=== PATIENT | male | born 1960 | race Caucasian/White ===

== ENCOUNTER → 2017-04-15 | Outpatient (CLI) | payer MEDICARE, OTHER ==
--- NOTE | 2017-04-15 10:38 | MR ---
EXAMINATION TYPE: MR lumbar spine wo con DATE OF EXAM: 04/15/2017 COMPARISON: NONE HISTORY: Lumbago with sciatica, right side TECHNIQUE: T1 and T2 axial and sagittal images of the lumbar spine are submitted. FINDINGS: There is no abnormal signal seen within the visualized spinal cord or paraspinal soft tissu es. At L1-2 there is no disc herniation or canal stenosis. No foraminal encroachment. At L2-3 there is facet arthropathy and degenerative disc disease. Mild broad-based disc bulging great er paracentrally to the left. No foraminal encroachment or canal stenosis. At L3-4 there is degenerative disc disease and broad-based central disc bulging with mild effacement of thecal sac. There is facet arthropathy. No foraminal encroachment. Borderline canal stenosis At L4-5 there is broad-based disc bulging centrally with ligament flavum hypertrophy and facet arthro lula. There is mild effacement of thecal sac. Neural foramina are patent with mild narrowing bilater ally. Borderline canal stenosis. At L5-S1 there is severe degenerative disc disease. There is a broad-based central and right paracent ral disc protrusion. There may be some encroachment upon the right nerve root at this level. Moderate bilateral foraminal encroachment. IMPRESSION: 1. Multilevel degenerative disc disease with multilevel disc bulging and most marked findings at L5-S 1 with severe degenerative disc disease and broad-based disc central protrusion resulting in canal st enosis and bilateral foraminal encroachment. There may be mild impression of the right nerve root at this level. 2. Borderline canal stenosis L3-L4 and L4-5 due to disc bulging and hypertrophic changes. 3. There are is ectasia of the abdominal aorta with maximal dimension of 2.8 cm.
== END | disposition home or self-care (01) ==
LOC: RADMRIMAIN 09:47
PROVIDERS: ATTEND Family Medicine
DX: M48.061 Spinal stenosis, lumbar region without neurogenic claudication (principal); M51.17 Intervertebral disc disorders with radiculopathy, lumbosacral region; M53.86 Other specified dorsopathies, lumbar region
CPT/HCPCS: 72148

== ENCOUNTER 2017-08-05 12:04 | Emergency (ER) | payer MEDICARE, OTHER ==
[2017-08-05] MEDS ORDERED: DIPH,PERTUS(ACELL)TETVAC-LF 0.5 ML VIAL IM ONE (12:43)
--- NOTE | 2017-08-05 12:45 | ED ---
General Adult HPI - General Stated complaint: Knee Laceration Time Seen by Provider: 08/05/17 12:36 Source: RN notes reviewed, old records reviewed - History of Present Illness Initial comments: 57-year-old male presents to the emergency department for a chief complaint of right knee laceration. Patient states that about an hour ago he was using a saw to cut wood without a guard it when he accidentally cut his right knee. Patient denies any other injuries. Patient states he can move his right lower extremity without any difficulty. Patient denies any previous surgery on that knee. Patient is not up-to-date on his tetanus shot. Patient has no other complaints at this time including headache, shortness of breath, chest pain, abdominal pain, nausea or vomiting. - Related Data Home Medications Medication Instructions Recorded Confirmed Aspirin 81 mg PO DAILY 11/11/14 12/17/15 Atorvastatin [Lipitor] 40 mg PO DAILY 11/11/14 12/17/15 Nitroglycerin Sl Tabs [Nitrostat] 0.4 mg SL Q5M PRN 11/11/14 12/17/15 Clopidogrel [Plavix] 75 mg PO DAILY 12/17/15 12/17/15 Loratadine [Claritin] 10 mg PO DAILY 12/17/15 12/17/15 Previous Rx's Medication Instructions Recorded Naproxen [Naprosyn] 500 mg PO Q12HR #60 tab 12/17/15 traMADol HCl [Ultram] 50 mg PO Q4H PRN #20 tab 12/17/15 Ibuprofen [Motrin] 600 mg PO Q8HR PRN #20 tab 08/05/17 Allergies Allergy/AdvReac Type Severity Reaction Status Date / Time No Known Allergies Allergy Verified 08/05/17 12:48 Review of Systems ROS Statement: Those systems with pertinent positive or pertinent negative responses have been documented in the HPI. ROS Other: All systems not noted in ROS Statement are negative. Past Medical History Past Medical History: Coronary Artery Disease (CAD) History of Any Multi-Drug Resistant Organisms: None Reported Past Surgical History: Heart Catheterization With Stent Past Psychological History: No Psychological Hx Reported Smoking Status: Current every day smoker Past Alcohol Use History: None Reported Past Drug Use History: None Reported General Exam General appearance: alert, in no apparent distress Respiratory exam: Present: normal lung sounds bilaterally. Absent: respiratory distress, wheezes, rales, rhonchi, stridor Cardiovascular Exam: Present: regular rate, normal rhythm, normal heart sounds. Absent: systolic murmur, diastolic murmur, rubs, gallop, clicks Extremities exam: Present: full ROM (Full range of motion of the right knee), normal capillary refill (Refill less than 2 seconds in the right lower extremity. Pedal pulse 2+.), other (There is a 4 cm vertical laceration to the ventral superior knee joint). Absent: tenderness, joint swelling, calf tenderness Course Vital Signs 08/05/17 12:44 Temperature 98.7 F Pulse Rate 87 Respiratory 18 Rate Blood Pressure 141/87 O2 Sat by Pulse 94 L Oximetry Procedures - Procedures Initial comment: Body area: right knee Laceration length: 4 cm Foreign bodies: no foreign bodies Tendon involvement: none Nerve involvement: none Vascular damage: no Anesthesia: local infiltration Local anesthetic: 8.5 mL 1% lidocaine Preparation: Patient was prepped and draped in the usual sterile fashion. Irrigation solution: saline Irrigation method:saline jet lavage Skin closure: 4-0 Ethilon using sterile technique Number of sutures: 10 Technique: interupted Dressing: antibiotic ointment/ gauze Patient tolerance: Patient tolerated the procedure well with no immediate complications. Medical Decision Making - Medical Decision Making 57-year-old male presents to the emergency department for chief complaint of right knee laceration 1 hour. Patient was using a saw when he accidentally cut his knee. Patient is not up-to-date on tetanus so that was given in the emergency department. On exam there is a 4 cm laceration to the anterior superior knee. It is a vertical laceration. X-ray was obtained of the knee to ensure no bone involvement which showed no fractures. Patient's wound was cleaned and irrigated with saline and iodine. 10 sutures were then used to close the laceration. Patients pain was much better after sutures applied. Patients pulse ox was 98% on discharge. Patient was given Motrin for pain relief. He was told to ice and elevate the extremity as well as rest it. He is to return to the emergency department if symptoms worsen or he notices signs of infection. He is to return in 10 days regardless to have sutures removed. Follow up with primary care provider. Disposition Clinical Impression: Laceration Disposition: HOME SELF-CARE Condition: Good Instructions: Care For Your Stitches (ED), Laceration (ED) Additional Instructions: Please return to the emergency department if you notice any signs of infection or worsening symptoms. Follow up with primary care provider in one to 2 days. Return in 10 days to have sutures removed. Is patient prescribed a controlled substance at d/c from ED?: No Referrals: Maria Victoria Bustillos MD [Primary Care Provider] - 1-2 days Time of Disposition: 13:57
[2017-08-05 12:48] VITALS: BP 141/87; RESP 18; TEMP 98.7
--- NOTE | 2017-08-05 13:05 | XR ---
EXAMINATION TYPE: XR knee 4V RT DATE OF EXAM: 08/05/2017 CLINICAL HISTORY: Laceration injury with pain TECHNIQUE: Three views of the right knee are obtained. A fourth sunrise view was acquired. COMPARISON: None. FINDINGS: There is no acute fracture/dislocation evident in right knee. The tri-compartment joint s paces appear within normal limits. Patellar articulation is within normal limits on sunrise view. Francisco J e posterior vascular calcification is present. IMPRESSION: There is no acute fracture or dislocation in the right knee.
[2017-08-05 14:29] VITALS: PULSE 79
== END 2017-08-05 14:29 | disposition home or self-care (01) ==
LOC: EC 12:04
DX: S81.011A Laceration without foreign body, right knee, initial encounter (principal); I25.10 Atherosclerotic heart disease of native coronary artery without angina pectoris; F17.200 Nicotine dependence, unspecified, uncomplicated; Z23 Encounter for immunization; Z79.82 Long term (current) use of aspirin; Z79.01 Long term (current) use of anticoagulants; Z79.899 Other long term (current) drug therapy; Z95.5 Presence of coronary angioplasty implant and graft; W45.8XXA Other foreign body or object entering through skin, initial encounter; Y92.89 Other specified places as the place of occurrence of the external cause
CPT/HCPCS: 12002; 90471; 90715; 99283

== ENCOUNTER 2018-07-14 19:07 | Inpatient (IN) | payer MEDICARE, OTHER ==
[2018-07-14] MEDS ORDERED: THIAMINE 100 MG/ML 2 ML VIAL IM STA (19:43)
[2018-07-14] MEDS ORDERED: LORazepam 2 MG/ML INJ IV PRN ×2 (19:43)
[2018-07-14] MEDS ORDERED: ASPIRIN 81 MG PO STA (19:44)
[2018-07-14] MEDS ORDERED: SODIUM CHLORIDE 0.9% 1,000 ML IV STA (19:44)
[2018-07-14 20:31] LABS: Basophils # (A) 0.1 k/uL (0-0.2); Basophils % (A) 1 %; Eosinophils # (A) 0.2 k/uL (0-0.7); Eosinophils % (A) 3 %; HCT 46.7 % (39.0-53.0); HGB 16.2 gm/dL (13.0-17.5); Lymphocytes # (A) 1.8 k/uL (1.0-4.8); Lymphocytes % (A) 21 %; MCHC 34.6 g/dL (31.0-37.0); Macrocytosis Slight; Mean Platelet Volume 9.4; Monocytes # (A) 0.4 k/uL (0-1.0); Monocytes % (A) 4 %; Neutrophils # (A) 6.1 k/uL (1.3-7.7); Neutrophils % (A) 71 %; Platelet Count 198 k/uL (150-450); RBC 4.62 m/uL (4.30-5.90); RDW 15.3 % (11.5-15.5); WBC 8.7 k/uL (3.8-10.6)
[2018-07-14] MEDS: LORazepam 2 MG/ML INJ IV PRN (20:32)
[2018-07-14 20:41] LABS: ALT 126 U/L (21-72); AST 237 U/L (17-59); Albumin 3.9 g/dL (3.5-5.0); Alkaline Phosphatase 195 U/L (38-126); Anion Gap 11 mmol/L; Blood Urea Nitrogen 7 mg/dL (9-20); Calcium 9.1 mg/dL (8.4-10.2); Carbon Dioxide 26 mmol/L (22-30); Chloride 105 mmol/L (98-107); Glucose 83 mg/dL (74-99); Magnesium 1.7 mg/dL (1.6-2.3); Phosphorus 3.7 mg/dL (2.5-4.5); Potassium 3.9 mmol/L (3.5-5.1); Sodium 142 mmol/L (137-145); Total Bilirubin 0.9 mg/dL (0.2-1.3); Total Protein 6.4 g/dL (6.3-8.2)
[2018-07-14 20:43] LABS: INR 0.9 (<1.2); Partial Thromboplastin Time 22.9 sec (22.0-30.0); Prothrombin Time 9.8 sec (9.0-12.0)
--- NOTE | 2018-07-14 20:52 | XR ---
EXAMINATION: XR chest 2V DATE AND TIME: 07/14/2018 8:38 PM CLINICAL INDICATION: PHH; Chest Pain TECHNIQUE: Departmental protocol COMPARISON: 11/11/2014 FINDINGS: The lungs are clear. The pleural spaces are negative. The cardiac silhouette is not enlarged. The remainder of the mediastinal silhouette is unremarkable. The skeletal structures and soft tissues are negative for acute findings. Pectus excavatum noted. IMPRESSION: NO ACUTE PROCESS.
--- NOTE | 2018-07-14 21:00 | ED ---
General Adult HPI - General Chief complaint: Nausea/Vomiting/Diarrhea Stated complaint: Detox Time Seen by Provider: 07/14/18 19:25 Source: patient, RN notes reviewed, old records reviewed Mode of arrival: ambulatory Limitations: no limitations - History of Present Illness Initial comments: 58-year-old male patient past medical history of coronary artery disease, status post approximate 5 stents, daily alcohol use presents to ED for multiple complaints. Patient primary complaint is of withdrawal symptoms. Patient states that he would like to decrease his drinking. Patient has secondary complaint of waxing and waning chest pain for approximately 6 weeks. Patient reports that this is located in his left breast region. Patient states that it is tough to quantify how long this pain lasted for palliative and provocative factors due to his daily alcohol abuse. Patient has very complaint of wishing to test for carbon monoxide. Patient reports that he he does house with a propane heater. Patient denies any current chest pain or shortness of breath or not. Patient denies any current complaints. Systemic: Pt denies fatigue, myalgia, fever/chills, rash. Pt denies weakness, night sweats, weight loss. Neuro: Pt denies headache, visual disturbances, syncope or pre-syncope. HEENT: Pt denies ocular discharge or irritation, otalgia, rhinorrhea, pharyngitis or notable lymphadenopathy. Cardiopulmonary: Pt denies chest pain, SOB, heart palpitations, dyspnea on exertion. Abdominal/GI: Pt denies abdominal pain, n/v/d. : Pt denies dysuria, burning w/ urination, frequency/urgency. Denies new onset urinary or bowel incontinence. MSK: Pt denies myalgia, loss of strength or function in extremities. Neuro: Pt denies new onset weakness, paresthesias. - Related Data Home Medications Medication Instructions Recorded Confirmed Aspirin 81 mg PO DAILY 11/11/14 07/14/18 Atorvastatin [Lipitor] 40 mg PO DAILY 11/11/14 07/14/18 Nitroglycerin Sl Tabs [Nitrostat] 0.4 mg SL Q5M PRN 11/11/14 07/14/18 Clopidogrel [Plavix] 75 mg PO DAILY 12/17/15 07/14/18 Loratadine [Claritin] 10 mg PO DAILY 12/17/15 07/14/18 Allergies Allergy/AdvReac Type Severity Reaction Status Date / Time No Known Allergies Allergy Verified 07/14/18 19:48 Review of Systems ROS Statement: Those systems with pertinent positive or pertinent negative responses have been documented in the HPI. ROS Other: All systems not noted in ROS Statement are negative. Past Medical History Past Medical History: Coronary Artery Disease (CAD), Myocardial Infarction ([place]) History of Any Multi-Drug Resistant Organisms: None Reported Past Surgical History: Heart Catheterization With Stent Past Psychological History: No Psychological Hx Reported Smoking Status: Current every day smoker Past Alcohol Use History: Daily Past Drug Use History: None Reported General Exam - General Exam Comments Initial Comments: Constitutional: NAD, AOX3, Pt has pleasant affect. HEENT: NC/AT, trachea midline, neck supple, no lymphadenopathy. Posterior pharynx non erythematous, without exudates. External ears appear normal, without discharge. Mucous membranes moist. Eyes PERRLA, EOM intact. There is no scleral icterus. No pallor noted. Cardiopulmonary: RRR, no murmurs, rubs or gallops, no JVD noted. Lungs CTAB in anterior and posterior alanis. No peripheral edema. Abdominal exam: Abdomen soft and non-distended. Abdomen non-tender to palpation in all 4 quadrants. Bowel sounds active in LLQ. No hepatosplenomegaly. No ecchymosis Neuro: CN II-XII grossly intact. No nuchal rigidity. MSK: No posterior calf tenderness bilaterally, homans sign negative bilaterally. Posterior tibialis and radial pulse +2 bilaterally. Sensation intact in upper and lower extremities. Full active ROM in upper and lower extremities, 5/5 stregnth. Limitations: no limitations Course Vital Signs 07/14/18 07/14/18 19:15 22:24 Temperature 97.8 F Pulse Rate 89 82 Respiratory 20 16 Rate Blood Pressure 137/86 113/71 O2 Sat by Pulse 98 97 Oximetry Medical Decision Making - Medical Decision Making 58-year-old male patient past medical history of coronary artery disease, status post approximate 5 stents, daily alcohol use presents to ED for multiple complaints. Patient primary complaint is of withdrawal symptoms. Patient states that he would like to decrease his drinking. Patient has secondary complaint of waxing and waning chest pain for approximately 6 weeks. Patient reports that this is located in his left breast region. Patient states that it is tough to quantify how long this pain lasted for palliative and provocative factors due to his daily alcohol abuse. Patient has very complaint of wishing to test for carbon monoxide. Patient reports that he he does house with a propane heater. Patient denies any current chest pain or shortness of breath or not. Patient denies any current complaints. Patient vital signs stable, afebrile. Physical exam didn't display acute pathology. Laboratory investigat ions revealed no impressive CBC, CMP revealed mild liver enzyme elevation. Evaluation studies non-impressive. Carbon monoxide quadrants 7.9. Likely due the patient's heavy smoking. Troponin negative. EKG not concerning for acute ischemia. Chest x-ray revealed no acute process. Patient additionally placed on nonrebreather, non-breather discontinued. Patient to be admitted for evaluation due to complaint of chest pain. Patient started on CIWA protocol. Case discussed with Dr. Norris. - Lab Data Result diagrams: 07/14/18 20:15 07/14/18 20:15 Lab Results 07/14/18 07/14/18 07/14/18 Range/Units 20:15 20:15 20:15 WBC 8.7 (3.8-10.6) k/uL RBC 4.62 (4.30-5.90) m/uL Hgb 16.2 (13.0-17.5) gm/dL Hct 46.7 (39.0-53.0) % MCV 101.0 H (80.0-100.0) fL MCH 35.0 (25.0-35.0) pg MCHC 34.6 (31.0-37.0) g/dL RDW 15.3 (11.5-15.5) % Plt Count 198 (150-450) k/uL Neutrophils % 71 % Lymphocytes % 21 % Monocytes % 4 % Eosinophils % 3 % Basophils % 1 % Neutrophils # 6.1 (1.3-7.7) k/uL Lymphocytes # 1.8 (1.0-4.8) k/uL Monocytes # 0.4 (0-1.0) k/uL Eosinophils # 0.2 (0-0.7) k/uL Basophils # 0.1 (0-0.2) k/uL Macrocytosis Slight PT 9.8 (9.0-12.0) sec INR 0.9 (<1.2) APTT 22.9 (22.0-30.0) sec Carbon Monoxide, Quant (<10.0) % Sodium 142 (137-145) mmol/L Potassium 3.9 (3.5-5.1) mmol/L Chloride 105 (98-107) mmol/L Carbon Dioxide 26 (22-30) mmol/L Anion Gap 11 mmol/L BUN 7 L (9-20) mg/dL Creatinine 0.72 (0.66-1.25) mg/dL Est GFR (CKD-EPI)AfAm >90 (>60 ml/min/1.73 sqM) Est GFR (CKD-EPI)NonAf >90 (>60 ml/min/1.73 sqM) Glucose 83 (74-99) mg/dL Calcium 9.1 (8.4-10.2) mg/dL Phosphorus 3.7 (2.5-4.5) mg/dL Magnesium 1.7 (1.6-2.3) mg/dL Total Bilirubin 0.9 (0.2-1.3) mg/dL AST 237 H (17-59) U/L ALT 126 H (21-72) U/L Alkaline Phosphatase 195 H (38-126) U/L Troponin I (0.000-0.034) ng/mL Total Protein 6.4 (6.3-8.2) g/dL Albumin 3.9 (3.5-5.0) g/dL 07/14/18 07/14/18 Range/Units 20:15 20:15 WBC (3.8-10.6) k/uL RBC (4.30-5.90) m/uL Hgb (13.0-17.5) gm/dL Hct (39.0-53.0) % MCV (80.0-100.0) fL MCH (25.0-35.0) pg MCHC (31.0-37.0) g/dL RDW (11.5-15.5) % Plt Count (150-450) k/uL Neutrophils % % Lymphocytes % % Monocytes % % Eosinophils % % Basophils % % Neutrophils # (1.3-7.7) k/uL Lymphocytes # (1.0-4.8) k/uL Monocytes # (0-1.0) k/uL Eosinophils # (0-0.7) k/uL Basophils # (0-0.2) k/uL Macrocytosis PT (9.0-12.0) sec INR (<1.2) APTT (22.0-30.0) sec Carbon Monoxide, Quant 7.9 (<10.0) % Sodium (137-145) mmol/L Potassium (3.5-5.1) mmol/L Chloride (98-107) mmol/L Carbon Dioxide (22-30) mmol/L Anion Gap mmol/L BUN (9-20) mg/dL Creatinine (0.66-1.25) mg/dL Est GFR (CKD-EPI)AfAm (>60 ml/min/1.73 sqM) Est GFR (CKD-EPI)NonAf (>60 ml/min/1.73 sqM) Glucose (74-99) mg/dL Calcium (8.4-10.2) mg/dL Phosphorus (2.5-4.5) mg/dL Magnesium (1.6-2.3) mg/dL Total Bilirubin (0.2-1.3) mg/dL AST (17-59) U/L ALT (21-72) U/L Alkaline Phosphatase (38-126) U/L Troponin I <0.012 (0.000-0.034) ng/mL Total Protein (6.3-8.2) g/dL Albumin (3.5-5.0) g/dL - EKG Data -: EKG Interpreted by Me (and dr norris) EKG Comments: Ventricular rate 73, patient for 148, QRS 100, QT/QTc 432/475. Normal sinus rhy thm. No concern for acute ischemia. Disposition Clinical Impression: Chest pain Disposition: ADMITTED IP TO THIS HOSP Condition: Fair Is patient prescribed a controlled substance at d/c from ED?: No Referrals: Maria Victoria Bustillos MD [Primary Care Provider] - 1-2 days
[2018-07-14] MEDS ORDERED: NITROGLYCERIN SL TABS 0.4 MG TAB SUBLINGUAL PRN (22:28)
[2018-07-14 23:42] LABS: Appearance,Urine Clear (Clear); Bilirubin,Urine Negative (Negative); Blood,Urine Negative (Negative); Color,Urine Yellow; Glucose,Urine (UA) Negative (Negative); Ketones,Urine Negative (Negative); Leukocyte Esterase,Urine Negative (Negative); Nitrite,Urine Negative (Negative); PH, Urine 5.5 (5.0-8.0); Protein,Urine Trace (Negative); Specific Gravity,Urine 1.018 (1.001-1.035)
[2018-07-15 00:10] VITALS: BMI 22.4
[2018-07-15 00:28] LABS: Amphetamine Screen,Urine Not Detected (NotDetected); Barbiturate Screen,Urine Not Detected (NotDetected); Benzodiazepines Screen,Urine Not Detected (NotDetected); Cocaine Screen,Urine Not Detected (NotDetected); Methadone Screen, Urine Not Detected (NotDetected); Opiate Screen,Urine Not Detected (NotDetected); Oxycodone Screen, Urine Not Detected (NotDetected); Phencyclidine Screen,Urine Not Detected (NotDetected); Tricyclic Antidepressant,Urine Not Detected (NotDetected); Urn Cannabinoid Scrn Detected (NotDetected)
[2018-07-15 06:29] LABS: Cholesterol 114 mg/dL (<200); HDL Cholesterol 76 mg/dL (40-60); LDL Cholesterol,Calculated 22 mg/dL (0-99); Triglycerides 82 mg/dL (<150)
[2018-07-15 08:02] VITALS: RESP 18
[2018-07-15] MEDS ORDERED: PANTOPRAZOLE 40 MG TABLET PO SCH (08:15)
[2018-07-15] MEDS ORDERED: PROPRANOLOL LA 80 MG CAP.SA.24H PO SCH (09:00)
[2018-07-15] MEDS ORDERED: ASPIRIN 325 MG TAB PO SCH (09:00)
[2018-07-15] MEDS ORDERED: ASPIRIN 81 MG PO SCH (09:00)
--- NOTE | 2018-07-15 09:23 | P.CRDCN ---
History of Present Illness Consult date: 07/15/18 Requesting physician: Dallin Eagle Consult reason: chest pain History of present illness: HPI: Patient is a 58-year-old male with past medical history of CAD status post stenting in EtOH abuse, who presents to the hospital with acute onset of nausea/vomiting and chest discomfort. He currently follows with Dr Gonzalez in the office. He states his chest discomfort has been going on for several weeks, which is sharp and epigastric. He does report retching with vomiting. Cardiac enzymes were negative 3. EKGs shows sinus rhythm with no acute ST or T-wave changes. Labs: AST 237, PLT 126, ALP 195, sodium 142, potassium 3.9, creatinine 0.7, LDL 22, HDL 76, triglycerides 82 Toxicology screening positive for marijuana, arterial blood gas negative for carbon monoxide exposure Vital Signs: BP 168/69 , HR=71, Temp: 98.8 PAST MEDICAL HISTORY: [CAD status post stenting 4, EtOH abuse, current smoker of tobacco and marijuana] REVIEW OF SYSTEMS: positive for chills and diaphoresis, no Fever. No cough or expectoration. Patient denies headache, dizziness, blurred vision, double vision. Patient reports abdominal discomfort, worsening with palpation. Positive for nausea and vomiting. Positive for chest discomfort, which is non- exertional. No hematochezia. No hematemesis. Denies any black stools or blood in his stools. Denies dysuria or hematuria. No muscle weakness or numbness. PHYSICAL EXAMINATION: This is a 58 -year old male in mild distress at the time of my examination. HEENT: Head is atraumatic, normocephalic. Pupils are equal, round. Sclerae anicteric. Conjunctivae are clear. Mucous membranes of the mouth are moist. Neck is supple. There is no jugular venous distention. No carotid bruit is heard. CHEST EXAMINATION: Lungs are clear to auscultation. No chest wall tenderness is noted on palpation. chest wall pain with inspiration. HEART EXAMINATION: Heart regular rate and rhythm. S1, S2 heard. No murmurs, gallops or rub. ABDOMEN: Soft, tender in upper quadrants. Bowel sounds are heard. No organomegaly noted. EXTREMITIES: 2+ peripheral pulses with no evidence of peripheral edema and no calf tenderness noted. NEUROLOGIC EXAMINATION: Patient is awake, alert and oriented x3. Past Medical History Past Medical History: Coronary Artery Disease (CAD), Myocardial Infarction ([place]) Additional Past Medical History / Comment(s): ETOH, Hx of 4 [place] Last Myocardial Infarction Date:: 2011 History of Any Multi-Drug Resistant Organisms: None Reported Past Surgical History: Heart Catheterization With Stent Additional Past Surgical History / Comment(s): Hx of 4 Stents Past Anesthesia/Blood Transfusion Reactions: No Reported Reaction Date of Last Stent Placement:: 2011 Past Psychological History: No Psychological Hx Reported Smoking Status: Current every day smoker Past Alcohol Use History: Daily Past Drug Use History: None Reported Medications and Allergies Home Medications Medication Instructions Recorded Confirmed Type Aspirin 81 mg PO DAILY 11/11/14 07/14/18 History Atorvastatin [Lipitor] 40 mg PO DAILY 11/11/14 07/14/18 History Nitroglycerin Sl Tabs [Nitrostat] 0.4 mg SL Q5M PRN 11/11/14 07/14/18 History Clopidogrel [Plavix] 75 mg PO DAILY 12/17/15 07/14/18 History Loratadine [Claritin] 10 mg PO DAILY 12/17/15 07/14/18 History Allergies Allergy/AdvReac Type Severity Reaction Status Date / Time No Known Allergies Allergy Verified 07/14/18 19:48 Physical Exam Vitals: Vital Signs Temp Pulse Pulse Resp BP BP Pulse Ox 07/15/18 08:00 98.8 F 71 18 168/69 96 07/15/18 04:00 79 16 07/15/18 03:53 99.0 F 79 16 151/85 93 L 07/15/18 00:00 98.2 F 69 16 164/88 97 07/14/18 23:08 98.0 F 88 16 142/81 96 07/14/18 22:24 82 16 113/71 97 07/14/18 19:15 97.8 F 89 20 137/86 98 Intake and Output 07/14/18 07/15/18 07/15/18 22:59 06:59 14:59 Intake Total 1000 Balance 1000 Intake: Amount of Fluid Infused ( 1000 ml) Other: Voiding Method Toilet Weight 61.235 kg Results 07/14/18 20:15 07/14/18 20:15 Cardiac Enzymes 07/14/18 07/14/18 07/14/18 Range/Units 20:15 20:15 22:41 AST 237 H (17-59) U/L Troponin I <0.012 0.014 (0.000-0.034) ng/mL 07/15/18 Range/Units 05:22 AST (17-59) U/L Troponin I 0.015 (0.000-0.034) ng/mL Coagulation 07/14/18 Range/Units 20:15 PT 9.8 (9.0-12.0) sec APTT 22.9 (22.0-30.0) sec Lipids 07/15/18 Range/Units 05:22 Triglycerides 82 (<150) mg/dL Cholesterol 114 (<200) mg/dL HDL Cholesterol 76 H (40-60) mg/dL CBC 07/14/18 Range/Units 20:15 WBC 8.7 (3.8-10.6) k/uL RBC 4.62 (4.30-5.90) m/uL Hgb 16.2 (13.0-17.5) gm/dL Hct 46.7 (39.0-53.0) % Plt Count 198 (150-450) k/uL Comprehensive Metabolic Panel 07/14/18 Range/Units 20:15 Sodium 142 (137-145) mmol/L Potassium 3.9 (3.5-5.1) mmol/L Chloride 105 (98-107) mmol/L Carbon Dioxide 26 (22-30) mmol/L BUN 7 L (9-20) mg/dL Creatinine 0.72 (0.66-1.25) mg/dL Glucose 83 (74-99) mg/dL Calcium 9.1 (8.4-10.2) mg/dL AST 237 H (17-59) U/L ALT 126 H (21-72) U/L Alkaline Phosphatase 195 H (38-126) U/L Total Protein 6.4 (6.3-8.2) g/dL Albumin 3.9 (3.5-5.0) g/dL Current Medications Generic Name Dose Route Start Last Admin Trade Name Freq PRN Reason Stop Dose Admin Aspirin 81 mg 07/15/18 09:00 07/15/18 08:18 Aspirin PO 81 mg DAILY JIMBO Administration Lorazepam 1 mg 07/14/18 19:43 07/14/18 20:32 Ativan IV 1 mg Q2HR PRN Administration CIWA 8 or 9 Lorazepam 1 mg 07/14/18 19:43 Ativan IV Q1HR PRN CIWA 10 to 15 Lorazepam 2 mg 07/14/18 19:43 07/15/18 08:14 Ativan IV 07/16/18 19:43 2 mg Q10M PRN Administration CIWA 16 or higher Nitroglycerin 0.4 mg 07/14/18 22:28 Nitrostat SUBLINGUAL Q5M PRN Chest Pain Pantoprazole Sodium 40 mg 07/15/18 08:15 07/15/18 08:18 Protonix PO 40 mg [id number] JIMBO Administration Propranolol HCl 80 mg 07/15/18 09:00 Inderal La PO DAILY JIMBO Thiamine HCl 100 mg 07/15/18 12:00 Vitamin B-1 PO BID@1200,1700 JIMBO Intake and Output 07/14/18 07/15/18 07/15/18 22:59 06:59 14:59 Intake Total 1000 Balance 1000 Intake: Amount of Fluid Infused ( 1000 ml) Other: Voiding Method Toilet Weight 61.235 kg 07/14/18 20:15 07/14/18 20:15 EKG Interpretations (text) Sinus rhythm with no acute ST or T wave changes Assessment and Plan Assessment: ASSESSMENT AND PLAN: 1) CAD s/p stenting x5 2) ETOH withdrawl 3) Hypertension 4) Dyslipidemia, LDL=22 5) Pancreatitis, elevated liver enzymes 6) Chest pain, likely musculoskeletal. Plan: We will hold his statin at this time, until his liver function normalizes. Start Inderal 80mg for hypertension. Reduce aspirin to 81mg. [place] GI prophylaxis.
[2018-07-15] MEDS ORDERED: ONDANSETRON 4 MG/2 ML VIAL IVP PRN (10:41)
[2018-07-15] MEDS: THIAMINE 100 MG TAB PO SCH ×2 (12:02→17:16)
[2018-07-15 12:04] VITALS: PULSE 73
[2018-07-15] MEDS: LORazepam 2 MG/ML INJ IV PRN ×2 (12:23→16:53)
[2018-07-15 16:22] VITALS: BP 162/87; TEMP 97.8
--- NOTE | 2018-07-15 23:26 | P.HPIM ---
History of Present Illness H&P Date: 07/15/18 Chief Complaint: Chest pain Patient is a 58-year-old male with a known history of coronary artery disease stent 4, history of MT, alcohol abuse came to ER with the complaints of intermittent left retrosternal chest pain on and off for the past 6 weeks. Chest pain is mainly retrosternal and epigastric region. Discussed with shortness of breath and nausea. No vomiting. No diaphoresis. Patient is all call intoxicated on admission. Patient says that his cousin few weeks ago due to sudden heart attack. Patient otherwise denied any recent illnesses. No cough is from production. No headache or dizziness or lightheadedness. Patient does drink alcohol on daily basis. Cardiac enzymes were negative 3. EKGs shows sinus rhythm with no acute ST or T-wave changes. Labs: AST 237, PLT 126, ALP 195, sodium 142, potassium 3.9, creatinine 0.7, LDL 22, HDL 76, triglycerides 82 Toxicology screening positive for marijuana, arterial blood gas negative for carbon monoxide exposure Review of Systems Constitutional: Patient denies any fever or chills . No generalized weakness or weight loss. Abdomen: Patient denied nausea vomiting and diarrhea and abdominal pain. Cardiovascular: Patient denies any chest pain or short of breath no palpitations. Respiratory: patient denied any cough is from production. No shortness of breath Neurologic: Patient denied any numbness or tingling headache. Musculoskeletal: Patient denies any complaints of joint swelling or deformity. Skin: Negative Psychiatric: Negative Endocrine: No heat or cold intolerance. No recent weight gain. Genitourinary: No dysuria or hematuria. All other 14 point ROS negative except the above Past Medical History Past Medical History: Coronary Artery Disease (CAD), Myocardial Infarction (MT) Additional Past Medical History / Comment(s): ETOH, Hx of 4 MT Last Myocardial Infarction Date:: 2011 History of Any Multi-Drug Resistant Organisms: None Reported Past Surgical History: Heart Catheterization With Stent Additional Past Surgical History / Comment(s): Hx of 4 Stents Past Anesthesia/Blood Transfusion Reactions: No Reported Reaction Date of Last Stent Placement:: 2011 Past Psychological History: No Psychological Hx Reported Smoking Status: Current every day smoker Past Alcohol Use History: Daily Past Drug Use History: None Reported Medications and Allergies Home Medications Medication Instructions Recorded Confirmed Type Aspirin 81 mg PO DAILY 11/11/14 07/14/18 History Atorvastatin [Lipitor] 40 mg PO DAILY 11/11/14 07/14/18 History Nitroglycerin Sl Tabs [Nitrostat] 0.4 mg SL Q5M PRN 11/11/14 07/14/18 History Clopidogrel [Plavix] 75 mg PO DAILY 12/17/15 07/14/18 History Loratadine [Claritin] 10 mg PO DAILY 12/17/15 07/14/18 History Allergies Allergy/AdvReac Type Severity Reaction Status Date / Time No Known Allergies Allergy Verified 07/14/18 19:48 Physical Exam Vitals: Vital Signs Temp Pulse Pulse Resp BP BP Pulse Ox 07/15/18 08:00 98.8 F 71 18 168/69 96 07/15/18 04:00 79 16 07/15/18 03:53 99.0 F 79 16 151/85 93 L 07/15/18 00:00 98.2 F 69 16 164/88 97 07/14/18 23:08 98.0 F 88 16 142/81 96 07/14/18 22:24 82 16 113/71 97 07/14/18 19:15 97.8 F 89 20 137/86 98 Intake and Output 07/14/18 07/15/18 07/15/18 22:59 06:59 14:59 Intake Total 1000 Balance 1000 Intake: Amount of Fluid Infused ( 1000 ml) Other: Voiding Method Toilet Weight 61.235 kg PHYSICAL EXAMINATION: Patient is lying in the bed comfortably, no acute distress, awake alert and oriented.. HEENT: Normocephalic. Neck is supple. Pupils reactive. Nostrils clear. Oral cavity is moist. Ears reveal no drainage. Neck reveals no JVD, carotid bruits, or thyromegaly. CHEST EXAMINATION: Trachea is central. Symmetrical expansion. Lung alanis clear to auscultation and percussion. CARDIAC: Normal S1, S2 with no gallops. No murmurs ABDOMEN: Soft. Bowel sounds normal. No organomegaly. No abdominal bruits. Extremities: reveal no edema. No clubbing or cyanosis Neurologically awake, alert, oriented x3 with well-coordinated movements. No focal deficits noted Skin: No rash or skin lesions. Psychiatric: Coperative. Nonsuicidal Musculoskeletal: No joint swelling or deformity. Normal range of motion. Results CBC & Chem 7: 07/14/18 20:15 07/14/18 20:15 Labs: Abnormal Lab Results - Last 24 Hours (Table) 07/14/18 07/14/18 07/14/18 Range/Units 20:15 20:15 22:45 MCV 101.0 H (80.0-100.0) fL BUN 7 L (9-20) mg/dL AST 237 H (17-59) U/L ALT 126 H (21-72) U/L Alkaline Phosphatase 195 H (38-126) U/L HDL Cholesterol (40-60) mg/dL Urine Protein Trace H (Negative) U Marijuana (THC) Screen Detected H (NotDetected) 07/15/18 Range/Units 05:22 MCV (80.0-100.0) fL BUN (9-20) mg/dL AST (17-59) U/L ALT (21-72) U/L Alkaline Phosphatase (38-126) U/L HDL Cholesterol 76 H (40-60) mg/dL Urine Protein (Negative) U Marijuana (THC) Screen (NotDetected) Thrombosis Risk Factor Assmnt - DVT/VTE Prophylaxis DVT/VTE Prophylaxis: Pharmacologic Prophylaxis ordered - Choose All That Apply Any of the Below Risk Factors Present?: Yes Each Factor Represents 1 point: Age 41-60 years Other Risk Factors: No Other congenital or acquired thrombophilia - If yes, enter type in comment: No Thrombosis Risk Factor Assessment Total Risk Factor Score: 1 Thrombosis Risk Factor Assessment Level: Low Risk Assessment and Plan Assessment: Atypical chest pain. Likely musculoskeletal versus GI related. Acute alcohol intoxication Elevated liver status possible alcohol hepatitis Alcohol withdrawal symptoms Coronary artery disease with history of Stent placement 4 Hypertension. Uncontrolled History of MT Marijuana use Nicotine addiction DVT prophylaxis with heparin subcu Plan: Patient be continued on telemetry monitoring. Continue with PPI and symptomatic management for nausea. Continue with aspirin. Hold statins due to elevated liver enzymes. Cardiology is on board. Started on Inderal for blood pressure control. Further recommendations based on the clinical course. Time with Patient: Greater than 30
[2018-07-15] MEDS ORDERED: SODIUM CHLORIDE 0.9% 1,000 ML IV SCH (23:30)
[2018-07-15] MEDS ORDERED: PROPRANOLOL 40 MG TAB PO SCH (23:30)
[2018-07-16] MEDS ORDERED: HEPARIN SODIUM,PORCINE 5,000 UNIT/ML 1 ML VIAL SQ SCH
[2018-07-16] MEDS ORDERED: PANTOPRAZOLE 40 MG TABLET PO SCH (07:30)
[2018-07-16] MEDS ORDERED: ASPIRIN 81 MG PO SCH (09:00)
[2018-07-16] MEDS ORDERED: CLOPIDOGREL 75 MG TAB PO SCH (09:00)
[2018-07-16] MEDS ORDERED: LORATADINE 10 MG TAB PO SCH (09:00)
[2018-07-16] MEDS ORDERED: MULTIVITAMINS, THERA 1 EACH TAB PO SCH (12:00)
[2018-07-16] MEDS ORDERED: THIAMINE 100 MG TAB PO SCH (12:00)
== END 2018-07-15 21:07 | disposition left against medical advice (07) | DRG 313 ==
LOC: EC 19:07 → 1SOBS 21:54 → OBSVTOIN 07-15 14:57 → 3NMEDONC 07-15 16:00
PROVIDERS: ADMIT Hospitalist; ATTEND Hospitalist
DX: R07.89 Other chest pain (principal); K85.90 Acute pancreatitis without necrosis or infection, unspecified; F10.239 Alcohol dependence with withdrawal, unspecified; E78.5 Hyperlipidemia, unspecified; F10.229 Alcohol dependence with intoxication, unspecified; F17.200 Nicotine dependence, unspecified, uncomplicated; I10 Essential (primary) hypertension; I25.10 Atherosclerotic heart disease of native coronary artery without angina pectoris; I25.2 Old myocardial infarction; Z79.02 Long term (current) use of antithrombotics/antiplatelets; Z79.82 Long term (current) use of aspirin; Z79.899 Other long term (current) drug therapy; Z95.5 Presence of coronary angioplasty implant and graft
CPT/HCPCS: 36415; 71046; 80053; 80061; 80306; 80320; 81003; 82375; 83735; 84100; 84484; 85025; 85610; 85730; 93005; 96361; 96372; 96374; 99285

== ENCOUNTER 2018-07-17 07:19 | Emergency (ER) | payer MEDICARE, OTHER ==
[2018-07-17] MEDS ORDERED: SODIUM CHLORIDE 0.9% 1,000 ML IV STA (07:47)
[2018-07-17 08:13] LABS: Basophils % (A) 0 %; Eosinophils # (A) 0.4 k/uL (0-0.7); Eosinophils % (A) 4 %; HCT 44.4 % (39.0-53.0); HGB 15.3 gm/dL (13.0-17.5); Lymphocytes # (A) 1.7 k/uL (1.0-4.8); Lymphocytes % (A) 19 %; MCH 35.3 pg (25.0-35.0); MCHC 34.5 g/dL (31.0-37.0); MCV 102.3 fL (80.0-100.0); Macrocytosis Slight; Mean Platelet Volume 8.1; Monocytes # (A) 0.5 k/uL (0-1.0); Monocytes % (A) 6 %; Neutrophils # (A) 5.8 k/uL (1.3-7.7); Neutrophils % (A) 68 %; Platelet Count 152 k/uL (150-450); RBC 4.34 m/uL (4.30-5.90); RDW 13.3 % (11.5-15.5); WBC 8.6 k/uL (3.8-10.6)
[2018-07-17 08:19] LABS: Potassium 3.1 mmol/L (3.5-5.1)
[2018-07-17 08:21] LABS: ALT 84 U/L (21-72); AST 92 U/L (17-59); Albumin 3.4 g/dL (3.5-5.0); Alkaline Phosphatase 151 U/L (38-126); Amylase 30 U/L (30-110); Anion Gap 12 mmol/L; Blood Urea Nitrogen 3 mg/dL (9-20); Calcium 8.9 mg/dL (8.4-10.2); Carbon Dioxide 25 mmol/L (22-30); Chloride 98 mmol/L (98-107); Glucose 129 mg/dL (74-99); Lipase 122 U/L (23-300); Magnesium 1.5 mg/dL (1.6-2.3); Sodium 135 mmol/L (137-145); Total Bilirubin 0.7 mg/dL (0.2-1.3); Total Protein 5.9 g/dL (6.3-8.2)
[2018-07-17] MEDS ORDERED: ONDANSETRON 4 MG/2 ML VIAL IVP STA (08:45)
[2018-07-17] MEDS ORDERED: MAGNESIUM SULFATE-D5W PMX 1 GM in DEXTROSE/WATER 1 100ML.BAG IVPB ONE (08:46)
--- NOTE | 2018-07-17 08:46 | ED ---
General Adult HPI - General Chief complaint: Abdominal Pain Stated complaint: abd pain Time Seen by Provider: 07/17/18 07:46 Source: patient, RN notes reviewed Mode of arrival: ambulatory - History of Present Illness Initial comments: 58-year-old male with a past medical history of alcohol is on, MT presents to the emergency department for upper abdominal pain. Patient states pain is in abdomen mostly on the right side. He states it radiates around to his back. Patient states he has been nauseous but not vomiting. Patient states this has been ongoing for 6 weeks but worsened in the past 2 days. Patient was recently admitted to the hospital for chest pain evaluation which was found to be negative. Patient does have a history of alcoholism, drank 3 bourbons today. He also ate a doughnut which he states he did keep down. Patient is concerned it may be his pancreas or his liver. Patient has no other complaints at this time including shortness of breath, chest pain, vomiting, headache, or visual changes. - Related Data Home Medications Medication Instructions Recorded Confirmed Aspirin 81 mg PO DAILY 11/11/14 07/17/18 Atorvastatin [Lipitor] 40 mg PO DAILY 11/11/14 07/17/18 Nitroglycerin Sl Tabs [Nitrostat] 0.4 mg SL Q5M PRN 11/11/14 07/17/18 Clopidogrel [Plavix] 75 mg PO DAILY 12/17/15 07/17/18 Loratadine [Claritin] 10 mg PO DAILY 12/17/15 07/17/18 Previous Rx's Medication Instructions Recorded Ondansetron [Zofran ODT] 4 mg PO Q8HR PRN #15 tab 07/17/18 Allergies Allergy/AdvReac Type Severity Reaction Status Date / Time No Known Allergies Allergy Verified 07/17/18 08:37 Review of Systems ROS Statement: Those systems with pertinent positive or pertinent negative responses have been documented in the HPI. ROS Other: All systems not noted in ROS Statement are negative. Past Medical History Past Medical History: Coronary Artery Disease (CAD), Myocardial Infarction (MT) Additional Past Medical History / Comment(s): ETOH, Hx of 4 MT Last Myocardial Infarction Date:: 2011 History of Any Multi-Drug Resistant Organisms: None Reported Past Surgical History: Heart Catheterization With Stent Additional Past Surgical History / Comment(s): Hx of 4 Stents in heart and 1 stent in iliac Past Anesthesia/Blood Transfusion Reactions: No Reported Reaction Date of Last Stent Placement:: 2011 Past Psychological History: No Psychological Hx Reported Smoking Status: Current every day smoker Past Alcohol Use History: Daily Past Drug Use History: Marijuana General Exam General appearance: alert, in no apparent distress Head exam: Present: atraumatic, normocephalic, normal inspection Eye exam: Present: normal appearance, PERRL, EOMI. Absent: scleral icterus, conjunctival injection, periorbital swelling ENT exam: Present: normal exam, mucous membranes moist Neck exam: Present: normal inspection, full ROM. Absent: tenderness, meningismus, lymphadenopathy Respiratory exam: Present: normal lung sounds bilaterally. Absent: respiratory distress, wheezes, rales, rhonchi, stridor Cardiovascular Exam: Present: regular rate, normal rhythm, normal heart sounds. Absent: systolic murmur, diastolic murmur, rubs, gallop, clicks GI/Abdominal exam: Present: soft, tenderness (epigastric and RUQ tenderness), normal bowel sounds. Absent: distended, guarding, rebound, rigid Back exam: Absent: CVA tenderness (R), CVA tenderness (L) Neurological exam: Present: alert, oriented X3, CN II-XII intact Psychiatric exam: Present: normal affect Course Vital Signs 07/17/18 07/17/18 07/17/18 07:21 09:30 10:00 Temperature 97.8 F Pulse Rate 98 84 Respiratory 18 16 Rate Blood Pressure 136/90 154/93 146/94 O2 Sat by Pulse 100 97 94 L Oximetry 07/17/18 07/17/18 10:30 11:00 Temperature Pulse Rate 81 77 Respiratory 17 18 Rate Blood Pressure 138/85 135/84 O2 Sat by Pulse 95 98 Oximetry EKG Findings - EKG Comments: EKG Findings:: Normal sinus rhythm, ventricular rate 80, ND 148, QT 452 Medical Decision Making - Medical Decision Making 58-year-old male with a past medical history of alcoholism, MT presents for upper abdominal pain worse on the right side and radiating to his back. This has been ongoing for about 6 weeks. Also limits for nausea. On exam patient does have right upper quadrant tenderness as well as some epigastric tenderness. Patient did see cardiology 2 days ago, ruled out cardiac cause. CBC unremarkable. CMP does show a magnesium of 1.5 which was replaced. Patient also has a potassium of 3.1 which it was also replaced with 40 mEq. Patient will follow up to have these rechecked. He will also follow up with GI due to hepatomegaly and nonspecific bile duct dilation of 0.8 cm. discussed this case with Dr. Leggett. - Lab Data Result diagrams: 07/17/18 08:00 07/17/18 08:00 Lab Results 07/17/18 07/17/18 07/17/18 Range/Units 08:00 08:00 08:54 WBC 8.6 (3.8-10.6) k/uL RBC 4.34 (4.30-5.90) m/uL Hgb 15.3 (13.0-17.5) gm/dL Hct 44.4 (39.0-53.0) % MCV 102.3 H (80.0-100.0) fL MCH 35.3 H (25.0-35.0) pg MCHC 34.5 (31.0-37.0) g/dL RDW 13.3 (11.5-15.5) % Plt Count 152 (150-450) k/uL Neutrophils % 68 % Lymphocytes % 19 % Monocytes % 6 % Eosinophils % 4 % Basophils % 0 % Neutrophils # 5.8 (1.3-7.7) k/uL Lymphocytes # 1.7 (1.0-4.8) k/uL Monocytes # 0.5 (0-1.0) k/uL Eosinophils # 0.4 (0-0.7) k/uL Basophils # 0.0 (0-0.2) k/uL Macrocytosis Slight Sodium 135 L (137-145) mmol/L Potassium 3.1 L (3.5-5.1) mmol/L Chloride 98 (98-107) mmol/L Carbon Dioxide 25 (22-30) mmol/L Anion Gap 12 mmol/L BUN 3 L (9-20) mg/dL Creatinine 0.53 L (0.66-1.25) mg/dL Est GFR (CKD-EPI)AfAm >90 (>60 ml/min/1.73 sqM) Est GFR (CKD-EPI)NonAf >90 (>60 ml/min/1.73 sqM) Glucose 129 H (74-99) mg/dL Calcium 8.9 (8.4-10.2) mg/dL Magnesium 1.5 L (1.6-2.3) mg/dL Total Bilirubin 0.7 (0.2-1.3) mg/dL AST 92 H (17-59) U/L ALT 84 H (21-72) U/L Alkaline Phosphatase 151 H (38-126) U/L Total Protein 5.9 L (6.3-8.2) g/dL Albumin 3.4 L (3.5-5.0) g/dL Amylase 30 (30-110) U/L Lipase 122 (23-300) U/L Urine Color Light Yellow Urine Appearance Clear (Clear) Urine pH 6.5 (5.0-8.0) Ur Specific [place] 1.002 (1.001-1.035) Urine Protein Negative (Negative) Urine Glucose (UA) Negative (Negative) Urine Ketones Negative (Negative) Urine Blood Negative (Negative) Urine Nitrite Negative (Negative) Urine Bilirubin Negative (Negative) Urine Urobilinogen <2.0 (<2.0) mg/dL Ur Leukocyte Esterase Negative (Negative) Disposition Clinical Impression: Upper abdominal pain Disposition: HOME SELF-CARE Condition: Good Instructions (If sedation given, give patient instructions): Abdominal Pain (ED) Additional Instructions: Please take Zofran for nausea. Follow up with GI in 1-2 days. Return to the emergency department if you have any worsening symptoms. Prescriptions: Ondansetron [Zofran ODT] 4 mg PO Q8HR PRN #15 tab PRN Reason: Nausea Is patient prescribed a controlled substance at d/c from ED?: No Referrals: Maria Victoria Bustillos MD [Primary Care Provider] - 1-2 days Gricelda Howard MD [STAFF PHYSICIAN] - 1-2 days Time of Disposition: 11:36
[2018-07-17] MEDS ORDERED: KETOROLAC 30 MG/ML 1 ML VIAL IVP STA (09:05)
[2018-07-17] MEDS ORDERED: POTASSIUM CHLORIDE 40 MEQ in WATER FOR INJECTION 1 100ML.BAG IVPB STA (09:15)
[2018-07-17 09:18] LABS: Appearance,Urine Clear (Clear); Bilirubin,Urine Negative (Negative); Blood,Urine Negative (Negative); Color,Urine Light Yellow; Glucose,Urine (UA) Negative (Negative); Ketones,Urine Negative (Negative); Leukocyte Esterase,Urine Negative (Negative); Nitrite,Urine Negative (Negative); PH, Urine 6.5 (5.0-8.0); Protein,Urine Negative (Negative); Specific Gravity,Urine 1.002 (1.001-1.035); Urobilinogen,Urine <2.0 mg/dL (<2.0)
[2018-07-17] MEDS ORDERED: POTASSIUM CHLORIDE 20 MEQ in WATER FOR INJECTION 1 100ML.BAG IVPB SCH (09:30)
--- NOTE | 2018-07-17 09:53 | US ---
EXAMINATION TYPE: US abdomen limited DATE OF EXAM: 07/17/2018 COMPARISON: CLINICAL HISTORY: Pain. Epigastric pain, patient is not NPO, no previous surgeries EXAM MEASUREMENTS: Liver Length: 16.6 cm Gallbladder Wall: 0.2 cm CBD: 0.8 cm CHD: 0.7 cm Right Kidney: 10.0 x 4.7 x 5.2 cm Pancreas: Obscured by bowel gas Liver: Increased attenuation, decreased visualization of vessels suggestive of fatty infiltrate, ander ears coarse Gallbladder: length appears slightly enlarged- 10.4 cm Evidence for sonographic Groves's sign: neg CBD: appears slightly dilated for patient age CHD: appears slightly dilated for patient age Right Kidney: wnl IMPRESSION: 1. Hepatomegaly with underlying fatty hepatic infiltration. 2. Nonspecific, bile duct dilatation.
[2018-07-17] MEDS ORDERED: POTASSIUM CHLORIDE ER 20 MEQ TAB.ER PO STA ×2 (10:19→11:42)
[2018-07-17 11:17] VITALS: RESP 18
[2018-07-17 12:01] VITALS: BP 125/88; PULSE 93; TEMP 97.5
== END 2018-07-17 11:59 | disposition home or self-care (01) ==
LOC: EC 07:19
DX: R10.10 Upper abdominal pain, unspecified (principal); R11.0 Nausea; R10.811 Right upper quadrant abdominal tenderness; R10.816 Epigastric abdominal tenderness; R16.0 Hepatomegaly, not elsewhere classified; K83.8 Other specified diseases of biliary tract; I25.10 Atherosclerotic heart disease of native coronary artery without angina pectoris; I25.2 Old myocardial infarction; F17.200 Nicotine dependence, unspecified, uncomplicated; Z79.82 Long term (current) use of aspirin; Z79.02 Long term (current) use of antithrombotics/antiplatelets; Z79.899 Other long term (current) drug therapy; Z95.5 Presence of coronary angioplasty implant and graft
CPT/HCPCS: 99284; 36415; 93005; 80053; 82150; 83690; 83735; 85025; 81003; 76705; 96365; 96367; 96366; 96375 ×2; 96361; J3480; J2405; J1885; J3475

== ENCOUNTER 2019-09-14 13:28 | Inpatient (IN) | payer MEDICARE, OTHER ==
--- NOTE | 2019-09-14 14:11 | XR ---
EXAMINATION TYPE: XR chest 2V DATE OF EXAM: 09/14/2019 COMPARISON: Chest x-ray July 14, 2018 HISTORY: Chest pain for 3 weeks and shortness of breath. TECHNIQUE: Frontal and lateral views of the chest are obtained. FINDINGS: There is chronic emphysematous change without suspicious new focal air space opacity, pleu ral effusion, or pneumothorax seen. The cardiac silhouette size remains within normal limits. Wadsworth ry stents in the proximal LAD and left circumflex distribution are now identified. The osseous struct ures are intact. IMPRESSION: Chronic changes without acute pulmonary process.
[2019-09-14 14:30] LABS: Basophils % (A) 0 %; Eosinophils # (A) 0.1 k/uL (0-0.7); Eosinophils % (A) 1 %; HCT 30.7 % (39.0-53.0); HGB 9.2 gm/dL (13.0-17.5); Hypochromasia Marked; Lymphocytes # (A) 1.5 k/uL (1.0-4.8); Lymphocytes % (A) 15 %; MCH 30.3 pg (25.0-35.0); Macrocytosis Slight; Mean Platelet Volume 9.1; Monocytes # (A) 0.5 k/uL (0-1.0); Monocytes % (A) 5 %; Neutrophils # (A) 7.1 k/uL (1.3-7.7); Neutrophils % (A) 75 %; Platelet Count 230 k/uL (150-450); RBC 3.04 m/uL (4.30-5.90); RDW 14.8 % (11.5-15.5); WBC 9.5 k/uL (3.8-10.6)
[2019-09-14 14:41] LABS: Partial Thromboplastin Time 22.9 sec (22.0-30.0); Prothrombin Time 10.5 sec (9.0-12.0)
[2019-09-14 14:46] LABS: ALT 51 U/L (4-49); AST 99 U/L (17-59); African American GFR (CKD) >90 (>60 ml/min/1.73 sqM); Albumin 2.9 g/dL (3.5-5.0); Alkaline Phosphatase 326 U/L (38-126); Anion Gap 13 mmol/L; Blood Urea Nitrogen 3 mg/dL (9-20); Calcium 7.8 mg/dL (8.4-10.2); Carbon Dioxide 29 mmol/L (22-30); Chloride 94 mmol/L (98-107); Glucose 110 mg/dL (74-99); Magnesium 1.5 mg/dL (1.6-2.3); Non-African American GFR(CKD) >90 (>60 ml/min/1.73 sqM); Sodium 136 mmol/L (137-145); Total Bilirubin 0.7 mg/dL (0.2-1.3)
--- NOTE | 2019-09-14 14:47 | ED ---
Chest Pain HPI - General Chief Complaint: Chest Pain Stated Complaint: SOB, CHEST PAIN Time Seen by Provider: 09/14/19 13:35 Source: patient, RN notes reviewed, old records reviewed Mode of arrival: ambulatory Limitations: no limitations - History of Present Illness Initial Comments: This is a 59-year-old male DF for evaluation patient doesn't multiple complaints chest pain and works from ED and obtain first and foremost. Patient persistent chest pain is persistent here in the ER. Patient does not feel well. Mild nausea no vomiting no current shortness of breath he also complains of bilateral lower extremity edema and redness swelling of both feet. Patient's eye significant history of same. 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 Complaint: chest pain -: days(s) Onset: during rest, during exertion Pain Location: substernal, left chest Pain Radiation: none Severity: moderate Severity scale (1-10): 4 Quality: tightness Consistency: intermittent Improves With: nothing Worsens With: nothing Other Symptoms: palpitations Treatments Prior to Arrival: none - Related Data Home Medications Medication Instructions Recorded Confirmed Aspirin 81 mg PO DAILY 11/11/14 09/14/19 Atorvastatin [Lipitor] 40 mg PO DAILY 11/11/14 09/14/19 Nitroglycerin Sl Tabs [Nitrostat] 0.4 mg SL Q5M PRN 11/11/14 09/14/19 Clopidogrel [Plavix] 75 mg PO DAILY 12/17/15 09/14/19 Loratadine [Claritin] 10 mg PO DAILY 12/17/15 09/14/19 Allergies Allergy/AdvReac Type Severity Reaction Status Date / Time No Known Allergies Allergy Verified 09/14/19 14:40 Review of Systems ROS Statement: Those systems with pertinent positive or pertinent negative responses have been documented in the HPI. ROS Other: All systems not noted in ROS Statement are negative. EKG Findings - EKG Comments: EKG Findings:: EKG shows sinus rhythm of 86. We'll put a QRS 110 QTC 516 Past Medical History Past Medical History: Coronary Artery Disease (CAD), Myocardial Infarction (AR) Additional Past Medical History / Comment(s): ETOH, Hx of 4 AR Last Myocardial Infarction Date:: 2011 History of Any Multi-Drug Resistant Organisms: None Reported Past Surgical History: Heart Catheterization With Stent Additional Past Surgical History / Comment(s): Hx of 4 Stents in heart and 1 stent in iliac Past Anesthesia/Blood Transfusion Reactions: No Reported Reaction Date of Last Stent Placement:: 2011 Past Psychological History: No Psychological Hx Reported Smoking Status: Current every day smoker Past Alcohol Use History: Daily Past Drug Use History: Marijuana General Exam Limitations: no limitations General appearance: alert, in no apparent distress Head exam: Present: atraumatic, normocephalic, normal inspection Eye exam: Present: normal appearance, PERRL, EOMI. Absent: scleral icterus, conjunctival injection, periorbital swelling ENT exam: Present: normal exam, mucous membranes moist Neck exam: Present: normal inspection. Absent: tenderness, meningismus, lymphadenopathy Respiratory exam: Present: normal lung sounds bilaterally. Absent: respiratory distress, wheezes, rales, rhonchi, stridor Cardiovascular Exam: Present: regular rate, normal rhythm, normal heart sounds. Absent: systolic murmur, diastolic murmur, rubs, gallop, clicks GI/Abdominal exam: Present: soft, normal bowel sounds. Absent: distended, tenderness, guarding, rebound, rigid Extremities exam: Present: normal inspection, full ROM, normal capillary refill. Absent: tenderness, pedal edema, joint swelling, calf tenderness Back exam: Present: normal inspection Neurological exam: Present: alert, oriented X3, CN II-XII intact Psychiatric exam: Present: normal affect, normal mood Skin exam: Present: warm, dry, intact, normal color. Absent: rash Course Vital Signs 09/14/19 09/14/19 13:31 14:15 Temperature 98.7 F 96.7 F L Pulse Rate 102 H 84 Respiratory 18 Rate Blood Pressure 122/79 126/77 O2 Sat by Pulse 98 100 Oximetry - Reevaluation(s) Reevaluation #1: 09/14/19 17:14 Medical records reviewed Reevaluation #2: 09/14/19 17:14 Patient still persistent chest pain here in the ER - Consultations Consultation #1: Spoke with the [facility] is okay for admission Chest Pain MDM - MDM 59 male DF for evaluation patient Dese for evaluation regards to chest pain atypical chest pain and lower extremities swelling. Patient will admit for cardiac observation evaluation of lower extremity edema Disposition Clinical Impression: Chest pain, Bilateral lower extremity edema, Hypokalemia, Hypomagnesemia Disposition: ADMITTED IP TO THIS HOSP Condition: Undetermined Is patient prescribed a controlled substance at d/c from ED?: No Referrals: Maria Victoria Bustillos MD [Primary Care Provider] - 1-2 days
[2019-09-14 14:48] LABS: Potassium 2.5 mmol/L (3.5-5.1)
[2019-09-14] MEDS ORDERED: POTASSIUM CHLORIDE ER 20 MEQ TAB.ER PO STA (17:11)
[2019-09-14] MEDS ORDERED: MAGNESIUM OXIDE 400 MG TAB PO STA (17:11)
[2019-09-14] MEDS ORDERED: NITROGLYCERIN SL TABS 0.4 MG TAB SUBLINGUAL PRN (17:12)
[2019-09-14] MEDS ORDERED: ASPIRIN 81 MG PO STA (17:12)
[2019-09-14] MEDS ORDERED: LORazepam 2 MG/ML INJ IV PRN ×3 (17:13)
[2019-09-14] MEDS ORDERED: THIAMINE 100 MG/ML 2 ML VIAL IM STA (17:13)
--- NOTE | 2019-09-14 18:11 | US ---
EXAMINATION TYPE: US gallbladder DATE OF EXAM: 09/14/2019 COMPARISON: NONE CLINICAL HISTORY: GB. EXAM MEASUREMENTS: Liver Length: 17.9 cm Gallbladder Wall: 0.5 cm CBD: 1.2 cm Right Kidney: 10.6 x 3.7 x 4.5 cm Pancreas: Obscured by bowel gas Liver: Increased attenuation, decreased visualization of vessels suggestive, heterogeneous, upper li mits of normal in size mild fatty infiltration. Gallbladder: thickened wall No evidence for sonographic Groves's sign. CBD: dilated Right Kidney: wnl Mild ascites noted. IMPRESSION: 1. Thickened gallbladder wall. Clinical consideration for acute cholecystitis is recommended. 2. Dilated common bile duct. 3. Mild fatty infiltration liver.
[2019-09-14] MEDS: PANTOPRAZOLE 40 MG TABLET PO SCH (20:38)
[2019-09-14] MEDS: POTASSIUM CHLORIDE ER 20 MEQ TAB.ER PO SCH ×3 (20:38→21:58)
[2019-09-14] MEDS: MAGNESIUM SULFATE-D5W PMX 1 GM in DEXTROSE/WATER 1 100ML.BAG IVPB SCH ×2 (20:38→21:58)
[2019-09-14] MEDS: NICOTINE 21MG/24HR PATCH TRANSDERM SCH (20:39)
[2019-09-15] MEDS ORDERED: Potassium Replacement Protocol 1 EACH MISC MISCELLANE PRN
[2019-09-15] MEDS ORDERED: HYDROcodone/APAP 5-325MG 1 EACH TAB PO PRN
[2019-09-15] MEDS ORDERED: TEMAZEPAM 15 MG CAP PO PRN
[2019-09-15] MEDS ORDERED: Magnesium Replacement Protocol 1 EACH MISC MISCELLANE PRN
[2019-09-15] MEDS ORDERED: HYDROmorphone 0.5 MG/0.5 ML SYRINGE IVP PRN
[2019-09-15] MEDS: THIAMINE 100 MG TAB PO SCH ×2 (06:21→17:12)
[2019-09-15 07:04] LABS: Basophils % (A) 0 %; Eosinophils # (A) 0.1 k/uL (0-0.7); Eosinophils % (A) 2 %; HCT 28.4 % (39.0-53.0); HGB 8.3 gm/dL (13.0-17.5); Hypochromasia Marked; Lymphocytes # (A) 1.3 k/uL (1.0-4.8); Lymphocytes % (A) 15 %; MCH 29.6 pg (25.0-35.0); MCHC 29.1 g/dL (31.0-37.0); MCV 101.7 fL (80.0-100.0); Macrocytosis Slight; Mean Platelet Volume 9.6; Monocytes # (A) 0.5 k/uL (0-1.0); Monocytes % (A) 6 %; Neutrophils # (A) 6.2 k/uL (1.3-7.7); Neutrophils % (A) 75 %; Platelet Count 198 k/uL (150-450); RBC 2.79 m/uL (4.30-5.90); RDW 14.8 % (11.5-15.5); WBC 8.4 k/uL (3.8-10.6)
[2019-09-15 07:26] LABS: ALT 47 U/L (4-49); AST 92 U/L (17-59); African American GFR (CKD) >90 (>60 ml/min/1.73 sqM); Albumin 2.3 g/dL (3.5-5.0); Alkaline Phosphatase 293 U/L (38-126); Anion Gap 1 mmol/L; Blood Urea Nitrogen 4 mg/dL (9-20); Calcium 7.5 mg/dL (8.4-10.2); Carbon Dioxide 33 mmol/L (22-30); Chloride 100 mmol/L (98-107); Cholesterol 119 mg/dL (<200); Glucose 86 mg/dL (74-99); HDL Cholesterol 35 mg/dL (40-60); LDL Cholesterol,Calculated 69 mg/dL (0-99); Non-African American GFR(CKD) >90 (>60 ml/min/1.73 sqM); Potassium 3.6 mmol/L (3.5-5.1); Sodium 134 mmol/L (137-145); Total Protein 5.1 g/dL (6.3-8.2); Triglycerides 76 mg/dL (<150)
--- NOTE | 2019-09-15 07:44 | HP ---
HISTORY AND PHYSICAL DATE OF SERVICE: 09/14/2019 CHIEF COMPLAINT: Chest pain. HISTORY OF PRESENT ILLNESS: This 59-year-old gentleman with a past medical history of multiple CAD, COPD, history of myocardial infarction, history of EtOH abuse is being followed by Dr. Maria Victoria Bustillos in the outpatient setting. Previously had CAD and stent and also the patient had a stent in the iliac artery also. The patient currently is drinking heavily and the patient is complaining of chest pain which is felt in the left side of the chest radiating to the shoulder. The patient came to [facility] and admitted for evaluation and treatment. The mild nausea was complained of. The patient also had features of early DTs and the patient admitted. Patient also complains of bilateral leg swelling also. There is no history of fever or rigors. No headache, loss of consciousness, seizures. PAST HISTORY: CAD/stent, history of myocardial infarction, history of EtOH, history of iliac stent, peripheral vascular disease. MEDICATIONS: 1. Nitroglycerin 0.4 sublingual p.r.n. 2. Claritin 10 mg daily. 3. Plavix 75 mg. 4. Lipitor 40 mg p.o. 5. Aspirin 81 mg daily. ALLERGIES: None. FAMILY HISTORY: History of aortic aneurysm in the family. SOCIAL HISTORY: History of alcohol, history of smoking on a daily basis. REVIEW OF SYSTEMS: ENT No history of diminished hearing or vision. CARDIOVASCULAR As mentioned earlier. RESPIRATORY As mentioned earlier. GI No nausea, vomiting, or diarrhea. No dysuria or hematuria. NERVOUS No numbness or weakness. ALLERGY/IMMUNOLOGY No asthma or hayfever. MUSCULOSKELETAL As mentioned earlier. HEMATOLOGY/ONCOLOGY Negative. ENDOCRINE No history of diabetes or hypothyroidism. CONSTITUTIONAL As mentioned earlier. DERMATOLOGY Negative. RHEUMATOLOGY Negative, PSYCHIATRY As mentioned earlier. PHYSICAL EXAMINATION: Alert, oriented x2. Pulse is 90, blood pressure 109/160, respiration 18, temperature 98.2, pulse ox 99% on 2 L. HEENT: Conjunctivae normal. Oral mucosa moist. NECK: No jugular venous distention. No lymph node enlargement. CARDIOVASCULAR: S1, S2. RESPIRATORY: Diminished breath sounds at the bases. No rhonchi and no crackles. ABDOMEN: Soft. Hepatomegaly present. Mild tenderness present. LEGS: Mild bilateral leg swelling. NERVOUS SYSTEM: Higher functions mentioned earlier. Moves all four limbs. No focal deficits. LYMPHATICS: No lymph node in neck or axilla. SKIN: No rash. JOINTS: No active deforming arthropathy. LABS: WBC 9, hemoglobin 9.2, MCV 101, sodium 130, potassium 2.5, creatinine 0.5, glucose 110, magnesium is 1.5. AST/ALT elevated. ASSESSMENT: 1. Chest pain for evaluation, rule out coronary artery disease. 2. Acute alcohol intoxication, acute delirium tremens. 3. Hyponatremia. 4. Hypokalemia. 5. Hypomagnesemia. 6. Alcoholic hepatitis. 7. Anemia, macrocytic secondary to alcohol. 8. History of coronary artery disease, stent. 9. History of chronic obstructive pulmonary disease. 10.History of myocardial infarction. 11.History of continued ongoing nicotine dependence. 12.FULL CODE. RECOMMENDATIONS AND DISCUSSION: In this 59-year-old gentleman who presented with multiple complex medical issues, we will monitor the patient closely, continue the current management and symptomatic treatment, serial troponins and CIWA protocol. Cardiology consultation. Otherwise, supplement potassium and monitor sodium. Supplement magnesium. Guarded prognosis because of multiple complex medical issues. Further recommendations to follow. See orders for details. MMODL / IJN: [id number] /
[2019-09-15] MEDS: CLOPIDOGREL 75 MG TAB PO SCH (08:51)
[2019-09-15] MEDS: NICOTINE 21MG/24HR PATCH TRANSDERM SCH (08:51)
[2019-09-15] MEDS: PANTOPRAZOLE 40 MG TABLET PO SCH (08:51)
[2019-09-15] MEDS: MULTIVITAMINS, THERA 1 EACH TAB PO SCH (08:51)
[2019-09-15] MEDS: LORATADINE 10 MG TAB PO SCH (08:51)
[2019-09-15] MEDS: ASPIRIN 325 MG TAB PO SCH (08:51)
[2019-09-15] MEDS: HEPARIN SODIUM,PORCINE 5,000 UNIT/ML 1 ML VIAL SQ SCH ×2 (08:51→22:32)
[2019-09-15] MEDS: ATORVASTATIN 40 MG TAB PO SCH (08:51)
--- NOTE | 2019-09-15 09:26 | P.CRDCN ---
History of Present Illness History of present illness: This is Dr. Gutierrez dictating a consult on this patient The patient was interviewed and examined IMPRESSION / ASSESSMENT: Patient presented with chest discomfort with nonspecific, subtle ST segment abnormalities line known coronary artery disease and coronary stenting Normal troponins 3 Known peripheral vascular disease Current smoker Alcohol use with abnormal LFTs Noncompliance with medications/followup PLAN: Treat hyperkalemia and hypomagnesemia Smoking cessation Complete abstinence from alcohol use 2-D echo Doppler study HPI 59-year-old male patient complaining of chest discomfort mild nausea no vomiting Complaining of bilateral lower extremity edema and redness of both feet Referred by primary care physician sent to the ER 3 normal cardiac enzymes Hyperkalemia hypomagnesemia Twelve-lead ECG shows sinus rhythm with occasional PVC subtle ST T changes in V5 and V6 ROS: No fever chills or rigors, no cough, phlegm or expectoration, no nausea, vomiting or diarrhea, no hematuria, dysuria, no musculoskeletal complaints, no strokes or seizures, no skin lesions. EXAMINATION: Afebrile 97.9F pulse rate 8210 beats a minute normal respirations Blood pressure 116/68 mmHg Lower extremity pitting edema 2+ bilaterally Heart sounds are tachycardic Lungs are clear REVIEW OF LABS, ECG & MEDICAL DATA Hemoglobin 9.2 and 8.3 Normal white count Low potassium of 2.5 on admission sodium 136 BUN 3 creatinine 0.5 AST 99 ALT 51 alkaline phosphatase 326 3 normal troponins LDL 69 HDL 35, triglycerides 76 and total cholesterol 119 Coronavirus negative No acute pulmonary process on chest x-ray Emphysematous changes Known coronary artery disease Alan stenting according to the history On aspirin atorvastatin Plavix per chart History of alcohol use Peripheral vascular disease with iliac stent Current every day smoker History of marijuana use Thickened gallbladder wall Past Medical History Past Medical History: Coronary Artery Disease (CAD), COPD, Myocardial Infarction ([place]) Additional Past Medical History / Comment(s): ETOH, Hx of 4 [place] Last Myocardial Infarction Date:: 2011 History of Any Multi-Drug Resistant Organisms: None Reported Past Surgical History: Heart Catheterization With Stent Additional Past Surgical History / Comment(s): Hx of 4 Stents in heart and 1 stent in iliac Past Anesthesia/Blood Transfusion Reactions: No Reported Reaction Date of Last Stent Placement:: 2011 Past Psychological History: No Psychological Hx Reported Smoking Status: Current every day smoker Past Alcohol Use History: Daily, Heavy Additional Past Alcohol Use History / Comment(s): patient states 1 pint per day and 2 tallboys Past Drug Use History: Marijuana - Past Family History Brother(s) Additional Family Medical History / Comment(s): aortic aneurysm Medications and Allergies Home Medications Medication Instructions Recorded Confirmed Type Aspirin 81 mg PO DAILY 11/11/14 09/14/19 History Atorvastatin [Lipitor] 40 mg PO DAILY 11/11/14 09/14/19 History Nitroglycerin Sl Tabs [Nitrostat] 0.4 mg SL Q5M PRN 11/11/14 09/14/19 History Clopidogrel [Plavix] 75 mg PO DAILY 12/17/15 09/14/19 History Loratadine [Claritin] 10 mg PO DAILY 12/17/15 09/14/19 History Allergies Allergy/AdvReac Type Severity Reaction Status Date / Time No Known Allergies Allergy Verified 09/14/19 14:40 Physical Exam Vitals: Vital Signs Temp Pulse Pulse Resp BP BP Pulse Ox 09/15/19 07:47 97.9 F 111 H 18 116/68 98 09/15/19 03:10 98 F 80 18 115/71 98 09/14/19 23:21 98.2 F 90 18 109/67 99 09/14/19 21:25 98.1 F 95 18 116/65 100 09/14/19 19:30 98.7 F 98 15 119/75 92 L 09/14/19 18:18 98.8 F 99 24 143/88 99 09/14/19 18:07 97.1 F L 09/14/19 14:15 96.7 F L 84 126/77 100 09/14/19 13:31 98.7 F 102 H 18 122/79 98 Intake and Output 09/14/19 09/15/19 09/15/19 22:59 06:59 14:59 Intake Total 240 Balance 240 Intake: Oral 240 Other: # Voids 0 Weight 63.503 kg 60 kg Results 09/15/19 06:40 09/15/19 06:40 Cardiac Enzymes 09/14/19 09/14/19 09/14/19 Range/Units 13:52 13:52 19:16 AST 99 H (17-59) U/L Troponin I <0.012 <0.012 (0.000-0.034) ng/mL 09/15/19 09/15/19 Range/Units 02:02 06:40 AST 92 H (17-59) U/L Troponin I <0.012 (0.000-0.034) ng/mL Coagulation 09/14/19 Range/Units 13:52 PT 10.5 (9.0-12.0) sec APTT 22.9 (22.0-30.0) sec Lipids 09/15/19 Range/Units 06:40 Triglycerides 76 (<150) mg/dL Cholesterol 119 (<200) mg/dL HDL Cholesterol 35 L (40-60) mg/dL CBC 09/14/19 09/15/19 Range/Units 13:52 06:40 WBC 9.5 8.4 (3.8-10.6) k/uL RBC 3.04 L 2.79 L (4.30-5.90) m/uL Hgb 9.2 L 8.3 L (13.0-17.5) gm/dL Hct 30.7 L 28.4 L (39.0-53.0) % Plt Count 230 198 (150-450) k/uL Comprehensive Metabolic Panel 09/14/19 09/15/19 Range/Units 13:52 06:40 Sodium 136 L 134 L (137-145) mmol/L Potassium 2.5 L* 3.6 (3.5-5.1) mmol/L Chloride 94 L 100 (98-107) mmol/L Carbon Dioxide 29 33 H (22-30) mmol/L BUN 3 L 4 L (9-20) mg/dL Creatinine 0.50 L 0.42 L (0.66-1.25) mg/dL Glucose 110 H 86 (74-99) mg/dL Calcium 7.8 L 7.5 L (8.4-10.2) mg/dL AST 99 H 92 H (17-59) U/L ALT 51 H 47 (4-49) U/L Alkaline Phosphatase 326 H 293 H (38-126) U/L Total Protein 6.0 L 5.1 L (6.3-8.2) g/dL Albumin 2.9 L 2.3 L (3.5-5.0) g/dL Current Medications Generic Name Dose Route Start Last Admin Trade Name Freq PRN Reason Stop Dose Admin Hydrocodone Bitart/Acetaminophen 1 each 09/15/19 00:00 [place] 5-325 PO Q6HR PRN Pain Aspirin 325 mg 09/15/19 09:00 09/15/19 08:51 Aspirin PO 325 mg DAILY JIMBO Administration Atorvastatin Calcium 40 mg 09/15/19 09:00 09/15/19 08:51 Lipitor PO 40 mg DAILY JIMBO Administration Clopidogrel Bisulfate 75 mg 09/15/19 09:00 09/15/19 08:51 Plavix PO 75 mg DAILY JIMBO Administration Heparin Sodium (Porcine) 5,000 unit 09/15/19 09:00 09/15/19 08:51 Heparin SQ 5,000 unit Q12HR JIMBO Administration Hydromorphone HCl 0.5 mg 09/15/19 00:00 Dilaudid IVP Q6HR PRN Severe Pain Loratadine 10 mg 09/15/19 09:00 09/15/19 08:51 Claritin PO 10 mg DAILY JIMBO Administration Lorazepam 1 mg 09/14/19 17:13 09/14/19 20:54 Ativan IV 1 mg Q2HR PRN Administration CIWA 8 or 9 Lorazepam 1 mg 09/14/19 17:13 Ativan IV Q1HR PRN CIWA 10 to 15 Lorazepam 2 mg 09/14/19 17:13 Ativan IV 09/16/19 17:13 Q10M PRN CIWA 16 or higher Miscellaneous Information 1 each 09/15/19 00:00 Magnesium Per Protocol MISCELLANE DAILY PRN Per Protocol Protocol Miscellaneous Information 1 each 09/15/19 00:00 Potassium Per Protocol MISCELLANE DAILY PRN Per Protocol Protocol Multivitamins 1 each 09/15/19 09:00 09/15/19 08:51 Theragran PO 1 each DAILY JIMBO Administration Nicotine 1 patch 09/14/19 19:30 09/15/19 08:51 Habitrol 21mg/24hr Patch TRANSDERM 1 patch DAILY JIMBO Administration Nitroglycerin 0.4 mg 09/14/19 17:12 Nitrostat SUBLINGUAL Q5M PRN Chest Pain Pantoprazole Sodium 40 mg 09/14/19 20:00 09/15/19 08:51 Protonix PO 40 mg DAILY JIMBO Administration Temazepam 15 mg 09/15/19 00:00 Restoril PO HS PRN Insomnia Thiamine HCl 100 mg 09/15/19 07:30 09/15/19 06:21 Vitamin B-1 PO 100 mg BID-W/MEALS JIMBO Administration Intake and Output 09/14/19 09/15/19 09/15/19 22:59 06:59 14:59 Intake Total 240 Balance 240 Intake: Oral 240 Other: # Voids 0 Weight 63.503 kg 60 kg 09/15/19 06:40 09/15/19 06:40
[2019-09-15 14:00] VITALS: BMI 21.3
[2019-09-15] MEDS ORDERED: LOPERAMIDE 2 MG CAP PO PRN (14:18)
--- NOTE | 2019-09-15 20:23 | PN ---
PROGRESS NOTE DATE OF SERVICE: 09/15/2019 This 59-year-old gentleman who was admitted with chest pain is being evaluated by Cardiology. The patient also has significant history of alcohol and a gallbladder ultrasound was also done which showed a thickened gallbladder. Further clinical correlation of cholecystis recommended. Patient being closely monitored. The patient also had some nausea, vomiting, diarrhea. PAST MEDICAL HISTORY: Reviewed. REVIEW OF SYSTEMS: Cardiovascular: No angina. Respiration: As mentioned earlier. GI: As mentioned earlier. : No dysuria. NERVOUS SYSTEM: No numbness, no weakness. CURRENT MEDICATIONS: Reviewed and include: 1. [place] 5 mg q.6 p.r.n. 2. Aspirin 320 mg. 3. Lipitor 40 mg. 4. Plavix 75 mg. 5. Dilaudid. 6. Imodium. 7. Claritin. 8. Ativan p.r.n. 9. Replacement protocol. 10.Nitrostat. 11.Protonix. 12.Restoril. 13.Vitamin B1. PHYSICAL EXAM: Patient is alert, oriented x3. Pulse 77, blood pressure 121/70, respiration 18, temperature 98.1, pulse ox 97% on room air. HEENT: Conjunctivae normal. NECK: No JVD. CARDIOVASCULAR: S1, S2 muffled. RESPIRATIONS: Breath sounds diminished in the bases. A few scattered rhonchi and crackles. ABDOMEN: Soft, minimal diffuse tenderness present. Hepatomegaly present. LEGS no edema. No swelling. NERVOUS SYSTEM: No focal deficits. LABS: WBC 8.2, hemoglobin is 8.2, sodium 132, potassium 3.6. Other labs are noted. Albumin is 2.3. [place] is negative. ASSESSMENT: 1. Chest pain for evaluation, rule out coronary artery disease. 2. Acute alcohol intoxication with acute delirium tremens. 3. Possible acute cholecystitis. 4. Hyponatremia. 5. Nausea and diarrhea possible acute gastroenteritis. 6. Hypokalemia. 7. Alcoholic hepatitis and hepatomegaly. 8. Hypomagnesemia. 9. Anemia macrocytic secondary to alcohol. 10.History of coronary artery disease/stent. 11.History of chronic obstructive pulmonary disease. 12.History of myocardial infarction. 13.History of continued ongoing nicotine dependence. 14.FULL CODE. RECOMMENDATIONS AND DISCUSSION: I recommend to continue current medications, management and symptomatic treatment. Myocardial infarction has been ruled out. Otherwise, the ultrasound showed thickened gallbladder. I would also recommend surgical evaluation with Dr. Camacho. Otherwise, continue to monitor. Guarded prognosis. Further recommendations to follow. Repeat labs also ordered. We will also check C difficile and if it is negative, recommend p.r.n. Imodium. MMODL / IJN: [id number] /
[2019-09-16 06:28] LABS: Basophils % (A) 0 %; Eosinophils # (A) 0.2 k/uL (0-0.7); Eosinophils % (A) 2 %; HCT 27.6 % (39.0-53.0); HGB 8.3 gm/dL (13.0-17.5); Hypochromasia Marked; Lymphocytes # (A) 1.3 k/uL (1.0-4.8); Lymphocytes % (A) 15 %; MCH 31.1 pg (25.0-35.0); MCHC 30.1 g/dL (31.0-37.0); MCV 103.3 fL (80.0-100.0); Macrocytosis Slight; Mean Platelet Volume 9.3; Monocytes # (A) 0.5 k/uL (0-1.0); Monocytes % (A) 6 %; Neutrophils # (A) 6.2 k/uL (1.3-7.7); Neutrophils % (A) 75 %; Platelet Count 200 k/uL (150-450); RBC 2.67 m/uL (4.30-5.90); RDW 14.7 % (11.5-15.5); WBC 8.3 k/uL (3.8-10.6)
[2019-09-16 06:44] LABS: ALT 45 U/L (4-49); AST 85 U/L (17-59); African American GFR (CKD) >90 (>60 ml/min/1.73 sqM); Albumin 2.3 g/dL (3.5-5.0); Alkaline Phosphatase 274 U/L (38-126); Anion Gap 0 mmol/L; Blood Urea Nitrogen 8 mg/dL (9-20); Calcium 7.8 mg/dL (8.4-10.2); Carbon Dioxide 33 mmol/L (22-30); Chloride 102 mmol/L (98-107); Glucose 89 mg/dL (74-99); Magnesium 1.8 mg/dL (1.6-2.3); Non-African American GFR(CKD) >90 (>60 ml/min/1.73 sqM); Potassium 3.5 mmol/L (3.5-5.1); Sodium 135 mmol/L (137-145); Total Bilirubin 0.8 mg/dL (0.2-1.3)
[2019-09-16] MEDS: THIAMINE 100 MG TAB PO SCH ×2 (07:25→17:45)
[2019-09-16] MEDS: ASPIRIN 325 MG TAB PO SCH (09:35)
[2019-09-16] MEDS: HEPARIN SODIUM,PORCINE 5,000 UNIT/ML 1 ML VIAL SQ SCH ×2 (09:35→20:31)
[2019-09-16] MEDS: ATORVASTATIN 40 MG TAB PO SCH (09:35)
[2019-09-16] MEDS: NICOTINE 21MG/24HR PATCH TRANSDERM SCH (09:35)
[2019-09-16] MEDS: PANTOPRAZOLE 40 MG TABLET PO SCH (09:36)
[2019-09-16] MEDS: MULTIVITAMINS, THERA 1 EACH TAB PO SCH (09:36)
[2019-09-16] MEDS: LORATADINE 10 MG TAB PO SCH (09:36)
[2019-09-16] MEDS: CLOPIDOGREL 75 MG TAB PO SCH (09:36)
[2019-09-16] MEDS: VANCOMYCIN ORAL SOLUTION 250 MG/5 ML BOTTLE PO SCH ×3 (10:40→17:45)
[2019-09-16] MEDS: CHERRY FLAVOR 60 ML BOTTLE PO SCH ×3 (10:40→17:45)
--- NOTE | 2019-09-16 10:54 | P.GSCN ---
History of Present Illness Consult date: 09/16/19 Reason for Consult: Cholecystitis History of present illness: 59-year-old male came to the hospital complaining of chest pain and leg swelling. Had some diarrhea as well. Patient complained of some nausea but no vomiting. Denies abdominal pain. Patient had an ultrasound performed possibly because of the elevated liver enzymes. Bilirubin is 1.0. Alkaline phosphatase elevated. Ultrasound showed no gallstones. Mildly thickened gallbladder wall with common bile duct dilation. Patient denies gallbladder issues in the past. Being treated for CHF currently. Review of Systems The patient denies any acute changes in vision or hearing, no dysphagia or odynophagia, no dysuria or hematuria, no headache, no runny nose, no rectal bleeding or melena, no unexplained weight loss Past Medical History Past Medical History: Coronary Artery Disease (CAD), COPD, Myocardial Infarction ([place]) Additional Past Medical History / Comment(s): ETOH, Hx of 4 [place] Last Myocardial Infarction Date:: 2011 History of Any Multi-Drug Resistant Organisms: None Reported Past Surgical History: Heart Catheterization With Stent Additional Past Surgical History / Comment(s): Hx of 4 Stents in heart and 1 stent in iliac Past Anesthesia/Blood Transfusion Reactions: No Reported Reaction Date of Last Stent Placement:: 2011 Past Psychological History: No Psychological Hx Reported Smoking Status: Current every day smoker Past Alcohol Use History: Daily, Heavy Additional Past Alcohol Use History / Comment(s): patient states 1 pint per day and 2 tallboys Past Drug Use History: Marijuana - Past Family History Brother(s) Additional Family Medical History / Comment(s): aortic aneurysm Medications and Allergies Home Medications Medication Instructions Recorded Confirmed Type Aspirin 81 mg PO DAILY 11/11/14 09/14/19 History Atorvastatin [Lipitor] 40 mg PO DAILY 11/11/14 09/14/19 History Nitroglycerin Sl Tabs [Nitrostat] 0.4 mg SL Q5M PRN 11/11/14 09/14/19 History Clopidogrel [Plavix] 75 mg PO DAILY 12/17/15 09/14/19 History Loratadine [Claritin] 10 mg PO DAILY 12/17/15 09/14/19 History Allergies Allergy/AdvReac Type Severity Reaction Status Date / Time No Known Allergies Allergy Verified 09/14/19 14:40 Surgical - Exam Vital Signs Temp Pulse Resp BP Pulse Ox 98.7 F 102 H 18 122/79 98 09/14/19 13:31 09/14/19 13:31 09/14/19 13:31 09/14/19 13:31 09/14/19 13:31 Physical exam: General: Well-developed, well-nourished HEENT: Normocephalic, sclerae nonicteric Abdomen: Nontender, nondistended Extremities: Mild edema Neuro: Alert and oriented Results - Labs 09/16/19 06:05 09/16/19 06:05 Abnormal Lab Results - Last 24 Hours (Table) 09/15/19 09/16/19 09/16/19 Range/Units 14:17 06:05 06:05 RBC 2.67 L (4.30-5.90) m/uL Hgb 8.3 L (13.0-17.5) gm/dL Hct 27.6 L (39.0-53.0) % MCV 103.3 H (80.0-100.0) fL MCHC 30.1 L (31.0-37.0) g/dL Sodium 135 L (137-145) mmol/L Carbon Dioxide 33 H (22-30) mmol/L BUN 8 L (9-20) mg/dL Creatinine 0.43 L (0.66-1.25) mg/dL Calcium 7.8 L (8.4-10.2) mg/dL AST 85 H (17-59) U/L Alkaline Phosphatase 274 H (38-126) U/L Total Protein 5.0 L (6.3-8.2) g/dL Albumin 2.3 L (3.5-5.0) g/dL C. difficile (EIA) Intrp Positive A (Negative) Diabetes panel 09/16/19 Range/Units 06:05 Sodium 135 L (137-145) mmol/L Potassium 3.5 (3.5-5.1) mmol/L Chloride 102 (98-107) mmol/L Carbon Dioxide 33 H (22-30) mmol/L BUN 8 L (9-20) mg/dL Creatinine 0.43 L (0.66-1.25) mg/dL Glucose 89 (74-99) mg/dL Calcium 7.8 L (8.4-10.2) mg/dL AST 85 H (17-59) U/L ALT 45 (4-49) U/L Alkaline Phosphatase 274 H (38-126) U/L Total Protein 5.0 L (6.3-8.2) g/dL Albumin 2.3 L (3.5-5.0) g/dL Calcium panel 09/16/19 Range/Units 06:05 Calcium 7.8 L (8.4-10.2) mg/dL Albumin 2.3 L (3.5-5.0) g/dL Pituitary panel 09/16/19 Range/Units 06:05 Sodium 135 L (137-145) mmol/L Potassium 3.5 (3.5-5.1) mmol/L Chloride 102 (98-107) mmol/L Carbon Dioxide 33 H (22-30) mmol/L BUN 8 L (9-20) mg/dL Creatinine 0.43 L (0.66-1.25) mg/dL Glucose 89 (74-99) mg/dL Calcium 7.8 L (8.4-10.2) mg/dL Adrenal panel 09/16/19 Range/Units 06:05 Sodium 135 L (137-145) mmol/L Potassium 3.5 (3.5-5.1) mmol/L Chloride 102 (98-107) mmol/L Carbon Dioxide 33 H (22-30) mmol/L BUN 8 L (9-20) mg/dL Creatinine 0.43 L (0.66-1.25) mg/dL Glucose 89 (74-99) mg/dL Calcium 7.8 L (8.4-10.2) mg/dL Total Bilirubin 0.8 (0.2-1.3) mg/dL AST 85 H (17-59) U/L ALT 45 (4-49) U/L Alkaline Phosphatase 274 H (38-126) U/L Total Protein 5.0 L (6.3-8.2) g/dL Albumin 2.3 L (3.5-5.0) g/dL Assessment and Plan (1) Acalculous cholecystitis Narrative/Plan: Patient with gallbladder wall thickening on recent ultrasound. Common bile duct appears slightly dilated. Thickening could be on the basis of liver congestion related to exacerbation of CHF. CBD dilation should be further evaluated with MRCP. Current Visit: Yes Status: Acute Code(s): K81.9 - CHOLECYSTITIS, UNSPECIFIED SNOMED Code(s): 45518388
--- NOTE | 2019-09-16 12:53 | P.PN ---
Subjective Progress Note Date: 09/16/19 The patient is a 59-year-old male with past medical history of EtOH abuse, coronary artery disease status post stenting, peripheral artery disease status post iliac stenting, COPD, hypertension, and dyslipidemia, who initially presented to the hospital with chest discomfort which radiated to his shoulder. Today he states he is doing well. He has had 2 twinges in his chest overnight, which she describes as a brisk sharp pain. He denies any shortness of breath, palpitations, dizziness, or lightheadedness. He states he still has edema. GENERAL: Well-appearing, well-nourished and in no acute distress. NECK: Supple without JVD or thyromegaly. LUNGS: Breath sounds clear to auscultation bilaterally. Respiration equal and unlabored. No wheezes, rales or rhonchi. HEART: Regular rate and rhythm without murmurs, rubs or gallops. S1 and S2 heard. EXTREMITIES: Normal range of motion. No clubbing or cyanosis. Peripheral pulses intact and strong. Mild lower extremity edema. LABS: WBC 8.3, hemoglobin 8.3, platelet 200, sodium 135, potassium 3.5, BUN 8, creatinine 0.43, magnesium 1.8, AST 85, ALT 45, ALP 274. VITALS: Blood pressure 116/76, SpO2 99% on room air, respirations 16, pulse 85, temp 98.6 Fahrenheit IMPRESSION: #1 chest discomfort, EKG showed nonspecific ST abnormalities, normal troponins #2 coronary artery disease, prior stenting #3 peripheral vascular disease, prior iliac stenting #4 current smoker #5 EtOH abuse with abnormal LFTs #6 noncompliance with medications/follow-up #7 cholecystitis, surgical referral and processed #8 C. diff PLAN: Continue the current medications. We will order an echocardiogram to assess heart structure and function. Continue to monitor. Objective - Vital Signs Vital signs: Vital Signs Temp 97.9 F 09/16/19 12:00 Pulse 92 09/16/19 12:00 Resp 16 09/16/19 12:00 BP 112/74 09/16/19 12:00 Pulse Ox 99 09/16/19 12:00 Intake & Output 09/15/19 09/16/19 09/16/19 18:59 06:59 18:59 Intake Total 920 540 360 Balance 920 540 360 Weight 60 kg 60.1 kg Intake: IV 100 saline 100 Oral 820 540 360 Other: # Voids 2 1 1 # Bowel Movements 1 0 - Labs CBC & Chem 7: 09/16/19 06:05 09/16/19 06:05 Labs: Abnormal Lab Results - Last 24 Hours (Table) 09/15/19 09/16/19 09/16/19 Range/Units 14:17 06:05 06:05 RBC 2.67 L (4.30-5.90) m/uL Hgb 8.3 L (13.0-17.5) gm/dL Hct 27.6 L (39.0-53.0) % MCV 103.3 H (80.0-100.0) fL MCHC 30.1 L (31.0-37.0) g/dL Sodium 135 L (137-145) mmol/L Carbon Dioxide 33 H (22-30) mmol/L BUN 8 L (9-20) mg/dL Creatinine 0.43 L (0.66-1.25) mg/dL Calcium 7.8 L (8.4-10.2) mg/dL AST 85 H (17-59) U/L Alkaline Phosphatase 274 H (38-126) U/L Total Protein 5.0 L (6.3-8.2) g/dL Albumin 2.3 L (3.5-5.0) g/dL C. difficile (EIA) Intrp Positive A (Negative)
[2019-09-16 13:33] LABS: Appearance,Urine Clear (Clear); Bilirubin,Urine Negative (Negative); Blood,Urine Negative (Negative); Color,Urine Yellow; Glucose,Urine (UA) Negative (Negative); Ketones,Urine Negative (Negative); Leukocyte Esterase,Urine Negative (Negative); Nitrite,Urine Negative (Negative); PH, Urine 8.5 (5.0-8.0); Protein,Urine Negative (Negative); Specific Gravity,Urine 1.014 (1.001-1.035)
[2019-09-16] MEDS: CHOLESTYRAMINE (WITH SUGAR) 4 GM PACKET PO SCH ×2 (17:45→20:31)
--- NOTE | 2019-09-17 01:05 | PN ---
PROGRESS NOTE DATE OF SERVICE: 09/16/2019 This is a 59-year-old gentleman who was admitted with chest pain also had significant diarrhea. The patient also had alcoholic intoxication. The patient also suspected to have acute cholecystitis and Dr. Camacho has seen the patient and recommended further evaluation. Otherwise, the patient also had C difficile positive diarrhea. Patient will be closely monitored. PAST MEDICAL HISTORY: Reviewed. REVIEW OF SYSTEMS: CARDIOVASCULAR SYSTEM: No angina. RESPIRATORY SYSTEM: As mentioned earlier. GI: As mentioned earlier. : No dysuria. NERVOUS SYSTEM: No numbness or weakness. CURRENT MEDICATIONS: Current medications are reviewed and include: 1. [place] 5 mg q.6 p.r.n. 2. Aspirin 325 mg daily. 3. Lipitor 40 mg daily. 4. [place] syrup. 5. Questran 4 grams a.c. and at bedtime. 6. Plavix 75 mg daily. 7. Heparin b.i.d. 8. Dilaudid. 9. Imodium. 10.Claritin. 11.Ativan. 12.Replacement protocols. 13.Nitrostat. 14.Protonix. 15.Restoril. 16.Vitamin B1. 17.Vancomycin. PHYSICAL EXAMINATION: Patient is alert and oriented x3. Pulse 92, blood pressure 111/78, respirations 16, temperature 98.2, pulse ox 99% on room air. HEENT: Conjunctivae normal. NECK: No jugular venous distention. CARDIOVASCULAR: S1, S2 muffled. RESPIRATORY: Breath sounds diminished at the bases. Bilateral scattered rhonchi and crackles. ABDOMEN: Soft, nontender. No mass palpable. LEGS: No edema, no swelling. NERVOUS SYSTEM; No focal deficits. LABS: WBC 8.3, hemoglobin 8.3, sodium 135, potassium 3.5. Alkaline phosphatase 274. ASSESSMENT: 1. Chest pain for evaluation, rule out coronary artery disease. 2. Acute alcohol intoxication and acute delirium tremens. 3. Acute diarrhea, Clostridium difficile colitis. 4. Possible acute calculous cholecystitis. 5. Hyponatremia. 6. Nausea, diarrhea secondary to Clostridium difficile colitis. 7. Hypokalemia. 8. Alcoholic hepatitis acute with hepatomegaly. 9. Hypomagnesemia. 10.Anemia macrocytic secondary to alcohol. 11.History of coronary artery disease, stent. 12.History of chronic obstructive pulmonary disease. 13.History of myocardial infarction. 14.History of continued ongoing nicotine dependence. 15.FULL CODE. RECOMMENDATIONS AND DISCUSSION: This 59-year-old gentleman presented with multiple complex medical issues, we will monitor the patient closely. Continue the current medications, continue symptomatic treatment. Otherwise at this time I recommend p.o. vancomycin and repeat labs, adjust the diet. Follow closely with Cardiology. Guarded prognosis because of multiple complex medical issues. Further recommendations to follow. MMODL / IJN: [id number] /
[2019-09-17] MEDS: CHOLESTYRAMINE (WITH SUGAR) 4 GM PACKET PO SCH ×4 (05:06→20:44)
[2019-09-17] MEDS: VANCOMYCIN ORAL SOLUTION 250 MG/5 ML BOTTLE PO SCH ×5 (05:08→22:56)
[2019-09-17] MEDS: CHERRY FLAVOR 60 ML BOTTLE PO SCH ×5 (05:09→22:56)
[2019-09-17 06:24] LABS: Basophils % (A) 0 %; Eosinophils # (A) 0.2 k/uL (0-0.7); Eosinophils % (A) 2 %; HCT 27.1 % (39.0-53.0); HGB 8.2 gm/dL (13.0-17.5); Hypochromasia Marked; Lymphocytes # (A) 1.5 k/uL (1.0-4.8); Lymphocytes % (A) 17 %; MCH 31.7 pg (25.0-35.0); MCHC 30.4 g/dL (31.0-37.0); MCV 104.4 fL (80.0-100.0); Macrocytosis Moderate; Mean Platelet Volume 8.9; Monocytes # (A) 0.6 k/uL (0-1.0); Monocytes % (A) 7 %; Neutrophils # (A) 6.3 k/uL (1.3-7.7); Neutrophils % (A) 72 %; Platelet Count 239 k/uL (150-450); RDW 14.9 % (11.5-15.5); WBC 8.8 k/uL (3.8-10.6)
[2019-09-17 06:32] LABS: ALT 44 U/L (4-49); AST 67 U/L (17-59); African American GFR (CKD) >90 (>60 ml/min/1.73 sqM); Albumin 2.3 g/dL (3.5-5.0); Alkaline Phosphatase 272 U/L (38-126); Anion Gap 1 mmol/L; Blood Urea Nitrogen 8 mg/dL (9-20); Calcium 7.9 mg/dL (8.4-10.2); Carbon Dioxide 31 mmol/L (22-30); Chloride 103 mmol/L (98-107); Glucose 99 mg/dL (74-99); Non-African American GFR(CKD) >90 (>60 ml/min/1.73 sqM); Potassium 3.9 mmol/L (3.5-5.1); Sodium 135 mmol/L (137-145); Total Bilirubin 0.7 mg/dL (0.2-1.3); Total Protein 5.2 g/dL (6.3-8.2)
[2019-09-17] MEDS: HEPARIN SODIUM,PORCINE 5,000 UNIT/ML 1 ML VIAL SQ SCH ×2 (09:12→20:44)
[2019-09-17] MEDS: CLOPIDOGREL 75 MG TAB PO SCH (09:12)
[2019-09-17] MEDS: THIAMINE 100 MG TAB PO SCH ×2 (09:12→17:17)
[2019-09-17] MEDS: ATORVASTATIN 40 MG TAB PO SCH (09:12)
[2019-09-17] MEDS: PANTOPRAZOLE 40 MG TABLET PO SCH (09:12)
[2019-09-17] MEDS: MULTIVITAMINS, THERA 1 EACH TAB PO SCH (09:13)
[2019-09-17] MEDS: NICOTINE 21MG/24HR PATCH TRANSDERM SCH (09:13)
[2019-09-17] MEDS: ASPIRIN 325 MG TAB PO SCH (09:13)
[2019-09-17] MEDS: LORATADINE 10 MG TAB PO SCH (09:13)
--- NOTE | 2019-09-17 10:14 | P.PN ---
<Gayla Ngo - Last Filed: 09/17/19 10:10> Subjective Progress Note Date: 09/17/19 CHIEF COMPLAINT: Cholecystitis HISTORY OF PRESENT ILLNESS: Patient examined this morning at the bedside. Patient denies abdominal pain. Denies nausea or vomiting. He reports multiple loose bowel movements this morning and overnight. WBC 8.8. Hemoglobin 8.2. Bilirubin 0.7. AST 67. ALT 44 PHYSICAL EXAM: VITAL SIGNS: Reviewed. GENERAL: Well-developed in no acute distress. HEENT: No sclera icterus. Extraocular movements grossly intact. Moist buccal mucosa. Head is atraumatic, normocephalic. ABDOMEN: Soft. Nondistended. Nontender. NEUROLOGIC: Alert and oriented. Cranial nerves II through XII grossly intact. ASSESSMENT: 1. Acalculous cholecystitis PLAN: -Diet as tolerated -MRCP ordered. Await results Nurse practitioner note has been reviewed by physician. Signing provider agrees with the documented findings, assessment, and plan of care. Objective - Vital Signs Vital signs: Vital Signs Temp 97.8 F 09/16/19 23:00 Pulse 87 09/17/19 00:00 Resp 18 09/17/19 00:00 BP 112/77 09/16/19 23:00 Pulse Ox 99 09/16/19 23:00 Intake & Output 09/16/19 09/17/19 09/17/19 18:59 06:59 18:59 Intake Total 600 0 120 Balance 600 0 120 Intake: Oral 600 0 120 Other: # Voids 1 1 # Bowel Movements 1 4 - Labs CBC & Chem 7: 09/17/19 05:35 09/17/19 05:35 Labs: Abnormal Lab Results - Last 24 Hours (Table) 09/15/19 09/17/19 09/17/19 Range/Units 13:20 05:35 05:35 RBC 2.60 L (4.30-5.90) m/uL Hgb 8.2 L (13.0-17.5) gm/dL Hct 27.1 L (39.0-53.0) % MCV 104.4 H (80.0-100.0) fL MCHC 30.4 L (31.0-37.0) g/dL Sodium 135 L (137-145) mmol/L Carbon Dioxide 31 H (22-30) mmol/L BUN 8 L (9-20) mg/dL Creatinine 0.41 L (0.66-1.25) mg/dL Calcium 7.9 L (8.4-10.2) mg/dL AST 67 H (17-59) U/L Alkaline Phosphatase 272 H (38-126) U/L Total Protein 5.2 L (6.3-8.2) g/dL Albumin 2.3 L (3.5-5.0) g/dL Urine pH 8.5 H (5.0-8.0) <Michael Camacho - Last Filed: 09/17/19 14:54> Subjective As above. Alkaline phosphatase remains elevated. No pain. Await MRCP today. Objective - Vital Signs Vital signs: Vital Signs Temp 98.1 F 09/17/19 12:43 Pulse 94 09/17/19 12:43 Resp 18 09/17/19 12:43 BP 126/89 09/17/19 12:43 Pulse Ox 99 09/17/19 12:43 Intake & Output 09/16/19 09/17/19 09/17/19 18:59 06:59 18:59 Intake Total 600 0 120 Balance 600 0 120 Intake: Oral 600 0 120 Other: # Voids 1 1 # Bowel Movements 1 4 - Labs CBC & Chem 7: 09/17/19 05:35 09/17/19 05:35 Labs: Abnormal Lab Results - Last 24 Hours (Table) 09/17/19 09/17/19 Range/Units 05:35 05:35 RBC 2.60 L (4.30-5.90) m/uL Hgb 8.2 L (13.0-17.5) gm/dL Hct 27.1 L (39.0-53.0) % MCV 104.4 H (80.0-100.0) fL MCHC 30.4 L (31.0-37.0) g/dL Sodium 135 L (137-145) mmol/L Carbon Dioxide 31 H (22-30) mmol/L BUN 8 L (9-20) mg/dL Creatinine 0.41 L (0.66-1.25) mg/dL Calcium 7.9 L (8.4-10.2) mg/dL AST 67 H (17-59) U/L Alkaline Phosphatase 272 H (38-126) U/L Total Protein 5.2 L (6.3-8.2) g/dL Albumin 2.3 L (3.5-5.0) g/dL Assessment and Plan (1) Acalculous cholecystitis Current Visit: Yes Status: Acute Code(s): K81.9 - CHOLECYSTITIS, UNSPECIFIED SNOMED Code(s): 52756931
--- NOTE | 2019-09-17 10:52 | PN ---
PROGRESS NOTE Mr. Nassar is a 59-year-old male with known history of chronic tobacco use, chronic alcohol intake, history of peripheral vascular disease who presented with symptoms of chest discomfort and abdominal discomfort. The patient has prior history of stenting and stenting of his left iliac. He has history of chronic tobacco use and chronic alcohol intake. He is feeling better today. His breathing is better. He still has some dyspnea, some cough. He denies any wheezing. He was seen by Dr. Camacho regarding his gallbladder. He denies any PND nor orthopnea. He continues to be on aspirin once a day, Plavix 75 mg daily, Lipitor 40 mg daily, , nicotine patch, Protonix and thiamine. PHYSICAL EXAMINATION: Blood pressure 112/70 with a heart rate in the 80s. LUNGS: With decreased air exchange, no wheezes. HEART: Regular rate and rhythm, S1, S2. No S3. No rub. ABDOMEN: Soft, nontender. EXTREMITIES: No edema. LAB DATA: Revealed hemoglobin of 8.2, BUN and creatinine of 8 and 0.41, alkaline phosphatase of 272, AST of 67, ALT of 44, has improved compared to admission. His C difficile positive. His cholesterol is 119, LDL of 69. IMPRESSION: 1. Symptoms of chest discomfort with no evidence of acute coronary syndrome. 2. History of coronary artery disease. 3. History of peripheral vascular disease. 4. Abdominal pain with chronic alcohol intake. 5. Chronic tobacco use. 6. Anemia. 7. History of Clostridium difficile. RECOMMENDATION: From the cardiac standpoint, will continue present therapy. I will await the results of his echocardiogram and depending on his progress, further recommendation will be made. The importance of smoking and alcohol cessation were discussed with the patient. MMODL / IJN: [id number] /
--- NOTE | 2019-09-17 12:00 | ECHOF ---
Referral Reason: MEASUREMENTS -------- HEIGHT: 167.6 cm WEIGHT: 59.9 kg BP: 112/77 IVSd: 1.3 cm (0.6 - 1.1) LVIDd: 4.3 cm (3.9 - 5.3) LVPWd: 1.3 cm (0.6 - 1.1) IVSs: 1.3 cm LVIDs: 3.3 cm LVPWs: 1.2 cm LAESV Index (A-L): 22.42 ml/m Ao Diam: 3.4 cm (2.0 - 3.7) AV Cusp: 1.5 cm (1.5 - 2.6) LA Diam: 1.8 cm (2.7 - 3.8) MV EXCURSION: 18.742 mm (> 18.000) MV EF SLOPE: 214 mm/s (70 - 150) EPSS: 1.8 cm MV E Phill: 0.67 m/s MV DecT: 218 ms MV A Phill: 0.91 m/s MV E/A Ratio: 0.74 RAP: 5.00 mmHg RVSP: 14.73 mmHg FINDINGS -------- Sinus rhythm. This was a technically good study. The left ventricular size is normal. Left ventricular wall thickness is normal. Overall left vent ricular systolic function is mild-moderately impaired with, an EF between 40 - 45 %. Normal LAP Gra de 1 Diastolic Dysfunction. Mid to basal inferiorlateral is hypokinetic The right ventricle is normal in size. The left atrial size is normal. Normal LA size by volume 22+/-6 ml/m2. The right atrial size is normal. Interatrial and interventricular septum intact. The aortic valve is trileaflet and appears structurally normal. The mitral valve is normal. The mitral valve leaflets are mildly thickened. Mild mitral regurgita tion is present. The tricuspid valve appears structurally normal. Mild tricuspid regurgitation present. Right vent ricular systolic pressure is normal at < 35 mmHg. There is no pulmonic regurgitation present. The aortic root size is normal. Normal inferior vena cava with normal inspiratory collapse consistent with estimated right atrial pre ssure of 5 mmHg. There is no pericardial effusion. CONCLUSIONS -------- 1. Sinus rhythm. 2. This was a technically good study. 3. The left ventricular size is normal. 4. Left ventricular wall thickness is normal. 5. Overall left ventricular systolic function is mild-moderately impaired with, an EF between 40 - 45 %. 6. Normal LAP Grade 1 Diastolic Dysfunction. 7. Mid to basal inferiorlateral is hypokinetic 8. The right ventricle is normal in size. 9. The left atrial size is normal. 10. Normal LA size by volume 22+/-6 ml/m2. 11. The right atrial size is normal. 12. Interatrial and interventricular septum intact. 13. The aortic valve is trileaflet and appears structurally normal. 14. The mitral valve is normal. 15. The mitral valve leaflets are mildly thickened. 16. Mild mitral regurgitation is present. 17. The tricuspid valve appears structurally normal. 18. Mild tricuspid regurgitation present. 19. Right ventricular systolic pressure is normal at < 35 mmHg. 20. There is no pulmonic regurgitation present. 21. The aortic root size is normal. 22. Normal inferior vena cava with normal inspiratory collapse consistent with estimated right atrial pressure of 5 mmHg. 23. There is no pericardial effusion. CREMATORIUM OPERATOR: June Alvarado RDCS
--- NOTE | 2019-09-17 13:58 | US ---
EXAMINATION TYPE: US abdomen limited DATE OF EXAM: 09/17/2019 COMPARISON: NONE CLINICAL HISTORY: ascites. Check for ascites Very small amount of ascites present IMPRESSION: There is only a very small amount of ascites.
--- NOTE | 2019-09-17 17:19 | PN ---
PROGRESS NOTE DATE OF SERVICE: 09/17/2019 This is a 59-year-old gentleman who was admitted with chest pain, also had acute alcohol intake, respiration, also acute C difficile colitis, also MRCP is being done today as per the recommendation of Surgery. No chest pain. No palpitations. No fever. PHYSICAL EXAM: Alert and oriented x3, pulse 94, blood pressure 136/80, respiration 18, temperature 98.1, pulse ox 99% on room air. HEENT: : Conjunctivae normal. NECK: No jugular venous distension. CARDIOVASCULAR SYSTEM: S1, S2, muffled. RESPIRATION: Breath sounds diminished at the bases, no rhonchi, no crackles. ABDOMEN: Soft, mild diffuse distention. Mild diffuse discomfort on palpation. No guarding. No mass palpable. LEGS: No edema, no swelling. NERVOUS SYSTEM: No focal deficits. LABS: WBC 8.8, hemoglobin is 8.2, sodium 135, potassium 3.8. LFTs are noted. ASSESSMENT: 1. Chest pain for evaluation, rule out coronary artery disease. 2. Acute alcohol intoxication, acute delirium tremens, present on admission. 3. Acute diarrhea. C difficile colitis. 4. Possible acute acalculous cholecystitis awaiting MRCP recommended by Surgery. 5. Hyponatremia. 6. Nausea, diarrhea secondary to Clostridium difficile colitis. 7. Hypokalemia, secondary to diarrhea. 8. Acute alcoholic hepatitis, acute hepatomegaly. 9. Hypomagnesemia. 10.Anemia, macrocytic secondary to alcohol. 11.History of CAD, stent. 12.History of COPD. 13.History of myocardial infarction. 14.History of continued ongoing nicotine dependence. 15.FULL CODE. RECOMMENDATION: Recommend to continue current management and symptomatic treatment, otherwise, continue the vancomycin p.o. Otherwise, I would also recommend low residue diet and continue to monitor. Continue with CIWA protocol and DT precautions and treatment of the DTs. Otherwise MRCP by Surgery regarding the evaluation of the calculous cholecystitis and other related issues. Prognosis guarded because of multiple complex medical issues and further recommendations to follow. MMODL / IJN: [id number] /
[2019-09-18] MEDS: VANCOMYCIN ORAL SOLUTION 250 MG/5 ML BOTTLE PO SCH (06:50)
[2019-09-18] MEDS: CHERRY FLAVOR 60 ML BOTTLE PO SCH (06:50)
[2019-09-18] MEDS: THIAMINE 100 MG TAB PO SCH (06:53)
[2019-09-18] MEDS: CHOLESTYRAMINE (WITH SUGAR) 4 GM PACKET PO SCH (06:54)
[2019-09-18 08:40] VITALS: BP 98/55; PULSE 93; RESP 16; TEMP 99.8
[2019-09-18] MEDS ORDERED: ASPIRIN 81 MG PO SCH (09:00)
[2019-09-18] MEDS: ATORVASTATIN 40 MG TAB PO SCH (09:46)
[2019-09-18] MEDS: CLOPIDOGREL 75 MG TAB PO SCH (09:46)
[2019-09-18] MEDS: LORATADINE 10 MG TAB PO SCH (09:46)
[2019-09-18] MEDS: HEPARIN SODIUM,PORCINE 5,000 UNIT/ML 1 ML VIAL SQ SCH (09:46)
[2019-09-18] MEDS: MULTIVITAMINS, THERA 1 EACH TAB PO SCH (09:46)
[2019-09-18] MEDS: PANTOPRAZOLE 40 MG TABLET PO SCH (09:46)
[2019-09-18] MEDS: NICOTINE 21MG/24HR PATCH TRANSDERM SCH (09:46)
--- NOTE | 2019-09-18 09:55 | P.PN ---
<JeniJoseGayla A - Last Filed: 09/18/19 09:53> Subjective Progress Note Date: 09/18/19 CHIEF COMPLAINT: Cholecystitis HISTORY OF PRESENT ILLNESS: Patient examined this morning at the bedside. Patient denies abdominal pain. Tolerating diet. Denies nausea or vomiting. He continues to report loose stools. WBC 8.8. Hemoglobin 8.2. Bilirubin 0.7. AST 67. ALT 44. Alkaline phosphatase 272. PHYSICAL EXAM: VITAL SIGNS: Reviewed. GENERAL: Well-developed in no acute distress. HEENT: No sclera icterus. Extraocular movements grossly intact. Moist buccal mucosa. Head is atraumatic, normocephalic. ABDOMEN: Soft. Nondistended. Nontender. NEUROLOGIC: Alert and oriented. Cranial nerves II through XII grossly intact. ASSESSMENT: 1. Acalculous cholecystitis PLAN: -Diet as tolerated -MRCP completed but has not been read by radiology. Await results. Further recommendations pending. Nurse practitioner note has been reviewed by physician. Signing provider agrees with the documented findings, assessment, and plan of care. Objective - Vital Signs Vital signs: Vital Signs Temp 99.8 F H 09/18/19 08:40 Pulse 93 09/18/19 08:40 Resp 16 09/18/19 08:40 BP 98/55 09/18/19 08:40 Pulse Ox 100 09/18/19 08:40 Intake & Output 09/17/19 09/18/19 09/18/19 18:59 06:59 18:59 Intake Total 360 120 120 Balance 360 120 120 Intake: Oral 360 120 120 Other: # Voids 2 # Bowel Movements 3 2 - Labs CBC & Chem 7: 09/17/19 05:35 09/17/19 05:35 <Michael Camacho - Last Filed: 09/18/19 15:45> Subjective As above. Patient's MRCP today revealed ascites and gallbladder wall thickening. Omental caking suspected by radiology. Patient apparently then left AGAINST MEDICAL ADVICE. We will try to have patient contacted by my office for follow-up. Objective - Vital Signs Vital signs: Vital Signs Temp 99.8 F H 09/18/19 08:40 Pulse 93 09/18/19 08:40 Resp 16 09/18/19 08:40 BP 98/55 09/18/19 08:40 Pulse Ox 100 09/18/19 08:40 Intake & Output 09/17/19 09/18/19 09/18/19 18:59 06:59 18:59 Intake Total 360 120 120 Balance 360 120 120 Intake: Oral 360 120 120 Other: # Voids 2 # Bowel Movements 3 2 - Labs CBC & Chem 7: 09/17/19 05:35 09/17/19 05:35 Assessment and Plan (1) Acalculous cholecystitis Status: Acute Code(s): K81.9 - CHOLECYSTITIS, UNSPECIFIED SNOMED Code(s): 54895056
--- NOTE | 2019-09-18 12:20 | PN ---
PROGRESS NOTE Mr. Nassar is a 59-year-old male who presented with symptoms of abdominal and chest discomfort. He had C difficile infection. He has a known history of chronic alcohol and tobacco use, history of peripheral vascular disease. He is feeling better today. His breathing is stable. He denies any chest pain. He is anxious to go home. He denies any dizziness or palpitation. He had an echocardiogram that showed an ejection fraction of 40% to 45% with a mild mitral and tricuspid regurgitation. He has been evaluated by the surgical team in regard to his gallbladder. He underwent an MRCP. He continues to be at this time on aspirin once a day, Lipitor 40 mg daily, , Plavix 75 mg daily, thiamine. PHYSICAL EXAMINATION: Blood pressure running in the 110s with a heart rate in 90s. LUNGS: Decreased air exchange, no wheezes. HEART: Regular rate and rhythm, S1, S2. No S3. No rub. ABDOMEN: Soft, nontender. EXTREMITIES: No edema. LAB DATA: Revealed BUN and creatinine of 8 and 0.41, hemoglobin of 8.2. His alkaline phosphatase 272. IMPRESSION: 1. Clostridium difficile infection. 2. History of ischemic cardiomyopathy noted in the past. 3. History of peripheral vascular disease. 4. Chronic tobacco use. 5. Chronic alcohol intake. RECOMMENDATION: From the cardiac standpoint, will continue present therapy, increase his level of activity. He will follow up with Dr. Del Toro as an outpatient. MMODL / IJN: [id number] /
--- NOTE | 2019-09-18 12:51 | MR ---
MRCP HISTORY: Dilated common bile duct Multiplanar multisequence imaging through the abdomen and biliary system with three-dimensional recon structions performed through the biliary system. Correlation ultrasound abdomen 09/17/2019, 09/14/2019 There is ascites present. Extensive abnormal signal is present within the ascites somewhat serpiginou s in appearance extending in all 4 quadrants consistent with omental caking. The liver shows enlargement, signal drop on out of phase imaging is compatible with hepatic steatosis . No evident liver mass. Gallbladder is not distended, gallbladder wall thickening could be due to as cites. Common bile duct appears dilated. No luminal filling defect evident to suggest choledocholithi asis. Lung bases show some minimal effusions Abdominal aorta is ectatic at 3.1 cm. Kidneys show no mass. Adrenal glands are unremarkable. Spleen i s not enlarged. No evident pancreatic mass. IMPRESSION: Findings compatible with omental caking, consider diagnostic paracentesis. Hepatomegaly w ith hepatic steatosis suggested. Small pleural effusions. Dilated common bile duct and additional fin dings above.
--- NOTE | 2019-09-18 13:00 | P.PN ---
Subjective Patient was admitted for chest pain rule out acute concerns syndromes cardia developed patient patient was treated for alcohol withdrawal patient had elevated liver enzymes because of which MRCP was done which only showed some hepatic steatosis. From alcoholism. Patient to was still having diarrhea patient is diagnosed with C. diff colitis still has 3 episodes of diarrhea today almost 8 episodes last night because of which my concern is dehydration because of which I'll order to give the patient for a day more until diarrhea resolves patient is on oral vancomycin. Constitutional: Denied any fatigue denied any fever. Cardio vascular: denied any chest pain, palpitations Gastrointestinal denied any nausea vomiting Pulmonary: Denied any shortness of breath cough Neurologic denied any new focal deficits All inpatient medications were reviewed and appropriate changes in these medications as dictated in the interval history and assessment and plan. Objective - Vital Signs Vital signs: Vital Signs Temp 99.8 F H 09/18/19 08:40 Pulse 93 09/18/19 08:40 Resp 16 09/18/19 08:40 BP 98/55 09/18/19 08:40 Pulse Ox 100 09/18/19 08:40 Intake & Output 09/17/19 09/18/19 09/18/19 18:59 06:59 18:59 Intake Total 360 120 120 Balance 360 120 120 Intake: Oral 360 120 120 Other: # Voids 2 # Bowel Movements 3 2 - Exam PHYSICAL EXAMINATION: GENERAL: The patient is alert and oriented x3, not in any acute distress. Well developed, well nourished. HEENT: Pupils are round and equally reacting to light. EOMI. No scleral icterus. No conjunctival pallor. Normocephalic, atraumatic. No pharyngeal erythema. No thyromegaly. CARDIOVASCULAR: S1 and S2 present. No murmurs, rubs, or gallops. PULMONARY: Chest is clear to auscultation, no wheezing or crackles. ABDOMEN: Soft, nontender, nondistended, normoactive bowel sounds. No palpable organomegaly. MUSCULOSKELETAL: No joint swelling or deformity. EXTREMITIES: No cyanosis, clubbing, or pedal edema. NEUROLOGICAL: Gross neurological examination did not reveal any focal deficits. SKIN: No rashes. - Labs CBC & Chem 7: 09/17/19 05:35 09/17/19 05:35 Assessment and Plan Plan: Clostridium difficile colitis continue diarrhea patient is presently on oral vancomycin and the Questran which will be continued. Continued on IV fluids because of his continued diarrhea -Alcohol withdrawal resolved -Elevated liver enzymes secondary to alcoholism patient is status post MRCP without any significant abnormality as mentioned above. Surgery is following the patient Coronary artery disease and chest pain chest pain resolved at this time was evaluated by cardiology. Is probably secondary to alcoholic gastritis -Hyponatremia hypovolemic hyponatremia resolved -Macrocytic anemia secondary to alcoholism
--- NOTE | 2019-09-18 13:01 | P.DS ---
Providers Date of admission: 09/16/19 09:50 Attending physician: Dallin Eagle Consults: 09/15/19 00:06 Consult Physician Routine Consulting Provider: Lior Del Toro Consult Reason/Comments: chest pain Do you want consulting provider notified?: Yes 09/15/19 19:43 Consult Physician Routine Consulting Provider: Michael Camacho Consult Reason/Comments: cholecystitis? Do you want consulting provider notified?: Yes Primary care physician: Maria Victoria Bustillos Hospital Course: Patient later and wanted to leave AGAINST MEDICAL ADVICE again him prescription for oral vancomycin patient can you to have diarrhea because of which may consist dehydration but patient doesn't want to stay because of which her discharge the patient with the extensive counseling of hydrating himself. For rest of the hospitalization course and medical problems please refer to the progress note that was done on the same day as his discharge Patient Condition at Discharge: Undetermined Plan - Discharge Summary Discharge Rx Participant: No New Discharge Prescriptions: New Vancomycin Oral Solution 250 mg PO Q6HR #7 day Thiamine [Vitamin B-1] 100 mg PO DAILY #30 tab Continue Nitroglycerin Sl Tabs [Nitrostat] 0.4 mg SL Q5M PRN PRN Reason: Chest Pain Atorvastatin [Lipitor] 40 mg PO DAILY Aspirin 81 mg PO DAILY Loratadine [Claritin] 10 mg PO DAILY Clopidogrel [Plavix] 75 mg PO DAILY Discharge Medication List Aspirin 81 mg PO DAILY 11/11/14 [History] Atorvastatin [Lipitor] 40 mg PO DAILY 11/11/14 [History] Nitroglycerin Sl Tabs [Nitrostat] 0.4 mg SL Q5M PRN 11/11/14 [History] Clopidogrel [Plavix] 75 mg PO DAILY 12/17/15 [History] Loratadine [Claritin] 10 mg PO DAILY 12/17/15 [History] Thiamine [Vitamin B-1] 100 mg PO DAILY #30 tab 09/18/19 [Rx] Vancomycin Oral Solution 250 mg PO Q6HR #7 day 09/18/19 [Rx] Follow up Appointment(s)/Referral(s): Maria Victoria Bustillos MD [Primary Care Provider] - 09/19/19 9:00 am (appt with Jazzy Crain NP) Lior Del Toro MD [STAFF PHYSICIAN] - 10/02/19 2:30 pm Patient Instructions/Handouts: Chest Pain (GEN), C Diff (Clostridium Difficile) Infection (GEN) Discharge Disposition: HOME SELF-CARE
== END 2019-09-18 12:02 | disposition home or self-care (01) | DRG 372 ==
LOC: EC 13:28 → SUPCPDRO 13:28 → 1SOBS 17:12 → 3SCARD 21:09 → OBSVTOIN 09-16 09:50
PROVIDERS: ADMIT Hospitalist; ATTEND Hospitalist
DX: A04.72 Enterocolitis due to Clostridium difficile, not specified as recurrent (principal); E87.1 Hypo-osmolality and hyponatremia; F10.221 Alcohol dependence with intoxication delirium; F10.231 Alcohol dependence with withdrawal delirium; K70.11 Alcoholic hepatitis with ascites; D63.8 Anemia in other chronic diseases classified elsewhere; K83.8 Other specified diseases of biliary tract; K81.9 Cholecystitis, unspecified; K76.0 Fatty (change of) liver, not elsewhere classified; J44.9 Chronic obstructive pulmonary disease, unspecified; I73.9 Peripheral vascular disease, unspecified; K29.20 Alcoholic gastritis without bleeding; E86.0 Dehydration; E78.5 Hyperlipidemia, unspecified; I08.1 Rheumatic disorders of both mitral and tricuspid valves; I25.5 Ischemic cardiomyopathy; I10 Essential (primary) hypertension; E83.42 Hypomagnesemia; E87.6 Hypokalemia; Z20.828 Contact with and (suspected) exposure to other viral communicable diseases; I25.10 Atherosclerotic heart disease of native coronary artery without angina pectoris; I25.2 Old myocardial infarction; T50.906A Underdosing of unspecified drugs, medicaments and biological substances, initial encounter; Z91.128 Patient's intentional underdosing of medication regimen for other reason; F17.200 Nicotine dependence, unspecified, uncomplicated; Z71.6 Tobacco abuse counseling; Z79.82 Long term (current) use of aspirin; Z79.02 Long term (current) use of antithrombotics/antiplatelets; Z79.899 Other long term (current) drug therapy; Z95.5 Presence of coronary angioplasty implant and graft; Z95.828 Presence of other vascular implants and grafts; Z82.49 Family history of ischemic heart disease and other diseases of the circulatory system
CPT/HCPCS: 36415; 71046; 74181; 76705; 80053; 80061; 81003; 82140; 83690; 83735; 83880; 84484; 85025; 85610; 85730; 87324; 93005; 93306; 96372; 99285